=== PATIENT | male | born 1960 | race Caucasian/White ===

== ENCOUNTER 2022-10-20 07:26 | Outpatient (OUT) | payer BC, SELFPAY ==
--- NOTE | 2022-10-20 07:36 | XR_ITS ---
The [address] [address] Patient Name: HI WONG MRN: [id number] date: 1960 Sex: M Assigned Patient Location: RAD Current Patient Location: RAD Accession/Order Number: [id number] Exam Date: 10/20/2022 07:40 Report Date: 10/20/2022 08:08 At the request of: LINA FARRIS Procedure: XR chest 2V EXAMINATION: XR chest 2V HISTORY: Pneumonia Of Right Lower Lobe J18.9 , follow-up COMPARISON: XR chest 10/06/2022 FINDINGS: LUNGS: No significant pulmonary parenchymal abnormalities. VASCULATURE: No increased pulmonary vasculature. PLEURA: No pneumothorax, effusion, or pleural thickening. CARDIAC: No cardiomegaly or cardiac silhouette abnormality. MEDIASTINUM: No visible mass or adenopathy. BONES: No fracture or visible bone lesion. OTHER: Negative. IMPRESSION: 1. No acute cardiac point process. Clearing of previously seen infiltrates. Electronically authenticated by: ALANIS LAZAR Date: 10/20/2022 08:08
== END 2022-10-20 07:27 ==
LOC: RAD 07:30
PROVIDERS: PCP Family Medicine; Visit Provider Family Medicine
DX: J18.9 Pneumonia, unspecified organism (principal)
CPT/HCPCS: 71046

== ENCOUNTER 2023-02-11 07:09 | Outpatient (OUT) | payer BC, SELFPAY ==
[2023-02-11 08:34] LABS: Thyroid Stimulating Hormone 4.269 uIU/mL (0.358-3.740)
[2023-02-11 09:23] LABS: Free T4 0.94 ng/dL (0.76-1.46)
== END 2023-02-11 07:10 | disposition home or self-care (01) ==
LOC: LAB 07:13
PROVIDERS: PCP Family Medicine; Visit Provider Family Medicine
DX: E03.9 Hypothyroidism, unspecified (principal)
CPT/HCPCS: 36415; 84439; 84443

== ENCOUNTER 2023-07-29 07:54 | Outpatient (OUT) | payer BC, SELFPAY ==
[2023-07-29 09:26] LABS: TSH W/ REFLEX FT4 4.209 uIU/mL (0.358-3.740)
[2023-07-29 10:12] LABS: Free T4 0.86 ng/dL (0.76-1.46)
== END 2023-07-29 07:55 | disposition home or self-care (01) ==
LOC: LAB 07:57
PROVIDERS: PCP Family Medicine; Visit Provider Family Medicine
DX: E03.9 Hypothyroidism, unspecified (principal)
CPT/HCPCS: 36415; 84439; 84443

== ENCOUNTER 2023-10-28 09:45 | Outpatient (OUT) | payer BC, SELFPAY ==
--- OUTSIDE RECORDS SUMMARY | 2023-10-28 10:08 | XMS_ITS | CCD ---
Author Organization [facility] Care Team Providers Care Cloth Baler Name Role Phone Brenton, DO Lina Primary Care Provider Petznick, DO Lina Attending Provider [phone] Petznick, Lina Attending Unavailable Petznick, Lina Primary Care Unavailable Petznick, Lina Admitting Unavailable PETZNICK, LINA Primary Care Physician PETZNICK, LINA Admitting Unavailable PETZNICK, LINA Attending Unavailable PETZNICK, LINA Consulting Unavailable PETZNICK, LINA Primary Care Unavailable PETZNICK, LINA Attending Unavailable PETZNICK, LINA Consulting Unavailable PETZNICK, LINA Primary Care Unavailable PETZNICK, LINA Admitting Unavailable ANDRE ., DR GARCIA Attending Unavailable ANDRE ., DR GARCIA Consulting Unavailable ANDRE ., DR GARCIA Admitting Unavailable PETZNICK, LINA Primary Care Unavailable PAY ., DR POLO Attending Unavailable PAY ., DR POLO Consulting Unavailable PAY ., DR POLO Admitting Unavailable PETZNICK, LINA Primary Care Unavailable Chavez Cao Admitting Unavailable PETZNICK, LINA C Primary Care Unavailable Chavez Cao Attending Unavailable PETZNICK, LINA C Primary Care Unavailable CHYNA QUIROGA Attending Unavailable CHYNA QUIROGA Admitting Unavailable PETITTI, ELISA A Attending Unavailable PETZNICK, LINA C Referring Unavailable Nigel ANDRE Attending Unavailable Allergies Allergy Classification Reported Allergen(s) Allergy Type Date of Onset Reaction(s) Facility (4 sources) Penicillin; Translations: [penicillin] Drug Allergy Anaphylaxis (disorder) [facility] (1 source) Penicillins Drug allergy (disorder) 4 [facility] Repository Medications Current Medications Medication Drug Class(es) Dates Sig (Normalized) Sig (Original) Airborne Everyday (2 sources) Start: 06-28-2022 Airborne Everyday Daily, Refill(s) 0 Start Date: 06/28/22 Status: Ordered Fiber Tab (2 sources) Start: 06-28-2022 take 1 tablet by mouth four times daily Fiber Tabs mg, Oral, QID, Refills(s) 0 Start Date: 06/28/22 Status: Ordered Osteo Bi-Flex (2 sources) Start: 06-28-2022 Osteo Bi-Flex Refill(s) 0 Start Date: 06/28/22 Status: Ordered fluconazole 150 mg oral tablet (1 source) Azole Antifungal Start: 04-11-2023 take 1 tablet by mouth once daily Diflucan 150 mg Tab 150 mg = 1 tab(s), Oral, Daily, # 3 tab(s), Refills(s) 0, Pharmacy: [facility]/pharmacy #[id number], 168, cm, 06/28/22 13:27:00 EST, Height/Length Dosing, 112, kg, 06/28/22 13:27:00 EST, Weight Dosing Start Date: 04/11/23 Status: Ordered Advil (2 sources) Nonsteroidal Anti-inflammatory Drug Start: 06-28-2022 Advil Oral, q6hr, Refills(s) 0 Start Date: 06/28/22 Status: Ordered olmesartan medoxomil 20 mg oral tablet (2 sources) Angiotensin 2 Receptor Deborah Start: 06-28-2022 olmesartan 20 mg Tab Refills(s) 0 Start Date: 06/28/22 Status: Ordered Problems Active Problems Problem Classification Problem Date Documented Date Episodic/Chronic Disorders of lipid metabolism (2 sources) Hyperlipidemia 06-28-2022 Chronic Fever of unknown origin (4 sources) Fever, unspecified; Translations: [FEVER UNSPECIFIED] Onset: 09-24-2022 Episodic Heart valve disorders (1 source) Cardiac murmur, unspecified; Translations: [Cardiac murmur, unspecified] Onset: 05-31-2022 Episodic Other aftercare (1 source) Other terminal carman (current) drug therapy; Translations: [OTH RETIREMENT CURRENT DRUG THERAPY] Onset: 09-28-2022 Episodic Other lower respiratory disease (1 source) Other nonspecific abnormal finding of lung field; Translations: [OTH NONSPECIFIC ABN FIND LNG FIELD] Onset: 09-28-2022 Episodic Other nutritional; endocrine; and metabolic disorders (1 source) Obesity, unspecified; Translations: [OBESITY UNSPECIFIED] Onset: 09-28-2022 Chronic Other nutritional; endocrine; and metabolic disorders (1 source) Body mass index (BMI) 40.0-44.9, adult; Translations: [BODY MASS INDEX BMI 40.0-44.9 ADULT] Onset: 09-28-2022 Chronic Other screening for suspected conditions (not mental disorders or infectious disease) (7 sources) Raised prostate specific antigen; Translations: [Elevated prostate specific antigen [PSA]] Onset: 06-09-2022 Episodic Residual codes; unclassified (1 source) Family history of cancer; Translations: [Family history of malignant neoplasm of prostate] Onset: 06-28-2022 Episodic Residual codes; unclassified (2 sources) Family history of prostate cancer 06-28-2022 Episodic Thyroid disorders (4 sources) Hypothyroidism, unspecified; Translations: [HYPOTHYROIDISM UNSPECIFIED] Onset: 08-06-2022 Chronic Unclassified (1 source) CONTACT W/AND (SUSP) EXPOS COVID-19; Translations: [CONTACT W/AND (SUSP) EXPOS COVID-19] Onset: 09-28-2022 Past or Other Problems Problem Classification Problem Date Documented Da te Episodic/Chronic Other circulatory disease (1 source) Elevated blood-pressure reading, without diagnosis of hypertension; Translations: [ELEVATED BP READING W/O DX HTN] Onset: 06-03-2022 Episodic Results Test Name Value Interpretation Reference Range Facility Patient Letter FTon 2023 Patient Letter [facility] October 18, 2023 JOHANN WONG [address] [place] [id number] : 1960 Dear Mr. Johann Wong, [facility] has been trying to reach you concerning having a repeat PSA level done due to an elevated PSA. We certainly understand not having insurance, but the hospitals offer a shafer PSA quach which is affordable for most patients. This test can also be completed in our office, and sent to [employer] It is very important you comply with having this PSA level rechecked, as an elevated PSA can be an indicator of infection or possibly prostate cancer. Thank you for your cooperation in this matter. Sincerely, [facility] [place]anna [place] [place] [address] , option #3 Normal [facility] Coding Summaryon 12-16-2022 Coding Summary HTMLBase 64 XyadumcuENk9vUl+PGhl YWQ+RB7QKEBaF62fxFPy pQ6tL1JGSQsZJqjeWTTR QQhYNuXkdeXmAN9tcXKy ZXJu IC8+IB8lORSuCscsoSNf i1I4tLI8C46lkb3uVDzx rWW3WXBkIjAtzfvpg7hr mWk4ZGymGbkbPrTz NIPvaB34VVA6oL64Ao23 iBRytLQqm8ognYp8PpVy SQFcQVF7yDoqQKzrf0Up DDGjN25ddQVmr5Y5 IGNvbGxhcHNlOyBlbXB0 vA5lIQyldngnx1cwsazl Icq9za64mDNsq0N8oNV7 I7LmieY8IYYqzCMm PynljUZEmA2lgrfdf2bm blgkToEiEWOtMLa5YVb3 NBHzyGamPqMoVS05FWX3 AVVoclVxZ5RxFMFe xJjyYhG8r4R6Ah7MD1AG CqmpF9GTQGLWWBknbVF+ IM25gb07K6OqWqrwKfz3 OUOgLLS1uBQ5nR8b ZGOkKUkxj9A9pXB4H8Cm iaIfsn7mc2jnYVOrYUgh G75wgLWwz0Q7GAGjeTD8 DYBvnVtyDcDzzN25 Oyc+LIKszHnye1RnPvid k7hmq8dkoNh8HjmmMNQi ilWzuJzfJKA5u8FlWh7u WZCyoMQ0qRI3jX0j QkIcZiI0COktT752AfFs tGYiWgiaT89zI7BanVK+ AOEeNap9AVEneCviCS7j T1UuYLMbilwdkGKy tBjoGT3rLRZkqeykSUIa kQ4yBWGsO5p2OdOjVlN1 NBmpC0QcDHZekkrwJe81 nQ4bVqLgQfZ1KGjb H5YbcbA9UDXygGUjWVyh OEX7B50jk7E5EREoITOa XIO5cUO3cA5shHpuixgn bGVmdDsgdmVydGlj LNvlCNqmB599AMXxhJmr PkNvZGluZyBEYXRlOiAg MDgvMDMvMjAyMzwvdGQ+ DKHcSCR8hTgaLLYj hSEpTMyoLd6fqEgcpIpz CK5vCSQbwjtyOHYkwO4p GUJwaLUkyZoiTU2vHVYk ldzxd829HdQfFMP7 NUWieZYjF3SucH8aCyUi TZLzJXSsQ5FotDQgASlf F703BUcqGsY6AXTlhyKp U5GeFHMboZlfWlJ5 u1A0Yh9Ma0FxxjcyX2Kv bKGbIhCqNxnvNIx5E8Xc PjwvdHI+QX63HCHtGD36 LAz8HSW7qWolJVex LYJhX0BhxL0tHdGgKJVm ZGRkOyc+PHRhYmxlIHdp ZHRoPScxMDAlJyBzdHls MO8fKr3eMWZdEAWy nGuytPUgMnVlt4orDNXp IJviDB8uvMkkL4AsnTE1 UFIma1q0Az03S03kP1Ry dXA+JARerUW6iLO8 bL5sNqYfFxQ7TUwtV831 SqBgrYCwWvzut8xaq2st fMg5SqI8JKNlscShiWyt BKJ8x1VtQz28L70o IHdpZHRoPSIxNSUiIHZh aBxulg6czF9fBr2+PGNv sDA4eMW0bP2uAkXkIrF8 UTujS995NiWyfUBr Gqted9rgw6lzqUu9DsYk MDZxzyEpzHiyAOE5q7Eu Wa28P5OmoQomd6ZhVfx3 en45cYPdc1O4fQE1 C3IoOUSsnqdpxKIflLkd IE9fCAWoclyjBZVkoJ1n LYEmT3i0DyGqWpY8SDlo V3EppwM3IUFmhAAl DQErwETMpN5mmzrvp6hz ujaaAmSoOVAqEWg5ZCw0 EESevStuEdMxKBF9IaB5 NUS6xCTulP3ysJks viwfwF6dCos+VXE0cBOs hZKGEH2rUjspbUG+PHRk KYA8iWsmFNwlLRWpxS5a LCBxK0c4UvKeGvA8 DSkeN4JydsR6RQRbiBIm BNScsJNUhD8lsmalr4ys gajpSgJjCKWfFVs9NCb6 LWFsaWduOiBsZWZ0 XuJ1BHX4rOFvwW2pcYdn whmtuL4bTbd+QmlydGgg JIB4QVa1I8JhMpq5VJMv pRgqYY2exGVwAQzf Vh1ktNlbwBokPB0lWKGj cnazj884VmLju6vcQYSr zZTjXPvqUQG9O44vj4G6 ZEBtELZxSDS7xBP9 mZ7orOuuiaqzbZBtjCrr oqWdbZpiJEgmWJzqJ943 LVRimIjoRpUlNCy4T8Vx Cik7ZQXksUdjIZ7v zPOaFJujGn8lsXlqaGxc UD6kQXHdarawo371OrAx m1hbPSMleVEuKXzzIRU3 T59hx4X3HEOsRAHn QHN5kOH0wN9pnOthuitz bGVmdDsgdmVydGljYWwt TAyuH974GFUrqDqoEbYt qMh2Q3IpRdm0MLFn xWybRJ9hxNZqTOkgXn8a mAcuiTfeZU8bAWFyonbo f506KcZmx3ttWLHuuXAr SXtsZEI7H07uw9N1 HZYwPBVwHXX3lKN5zB1s bGlnbjogbGVmdDsgdmVy rMsyDVtyTTddQ543CSGn cDsnPlBhdGllbnQg HReuYYq3K1NkTinkaLJ+ EM23YTDeEO13yCWnwYTb m1vguOp1VxPiOJSlOOC3 qWimVAidb7ZeYYAg N66abMRjd8O3MADvfWlm gDNuChEwsFE1bL1gZCdn pbvie2loggmcZednq9nl nt39cG93O14vUNwi ZHRoPSIzMCUiIHZhbGln el3jtF8gPv6+PGNvbCB3 uLF9dV6gGTKnBcJ9IGrq J745YuJhnFCdPqbl w6jqo9ixmNw6WyY0QYSt dqWexPsbTDS1c0UkQn75 U72fNExkINWsOYQfKQDw DSOqhAisyy6lnM9t Ii8+KAKhuKD7uBD2dE4k HxKeXrG0DYhdL103RiKs iTAwFrhaE46uP9HqnEH+ AOViXku7VSYbjMtl AD7djXUlJSvpZu2eLFK6 OiKgCxZeQHgcW7LbXOKs kvniypszkFU3YGWiHRIm oC54Gg0ieUdvWEMf iMLKgS2yojfzw1alwkio LtGfYCMiLXn6AZt6PXKn hHhsLxPdBTP6QvN0ZWB0 zQMyfV9etZxkzxuz eW1cI7BsBSKhkxnbUx14 kV3sVdGhPlC9WVgfTqd+ VkFORFlLRSwgREFOSUVM TPgGG2URXIiivOE+ CNZmBYD5rOliFLvePHVp mO3dVBZfP3p0OvYxFeC5 JMlcG4KeYUBupunqOd04 bC1pEnYsLkV7YFxf W2XlowT2MFRklVOxTXdw OXC9K61tk7N7WNTvBINk YGE1gVJ7dJ0zjWpfgjvm bGVmdDsgdmVydGlj NSeuILltR804ROAoqOaz JxFbHfOsBhX4YnI8D8Ms Rxq1XEHzgQnjSX2abPVu UCdmId3alEvfbSys SU1eSUJyzpltYRIezZ6d QHTnmZQxmZxrSA4pZNXq mzdnj547YnDzNSE9PBWf oIObZ3AhnA1iXlHk PLFfWVUhJ4WuuAMqHBvg Y889XRypFhC9XFCwcyDl B0PkUVKzuDlxNaR5h3L3 Vl99IGNZEGSrlgjz dGQ+ERHeGUZ5qDvlJIgv TJVvyL4aCTSlB1s4TjQl MzV7QIwhP7ClXEIueyku Nd37yA5wAnZeTyP0 MDqbP3MnsoD3AYHboFJz PEmlCNE8F58db0P9WDIz EYXpCZL1mVQ5kV7neAdu bjogbGVmdDsgdmVy pDvkNFnoIYgcH607GSVg vFpeBf3ORBV8T8AeBav6 EIUziSqrFV7vgLBdCJpc Et7hbZfhoZdjBJ2i HUJhswgjLEAisD1oOPVw iBCbvMorAC0wMUQiimwz c754LyTnZUQ0XORrrLLm Y7PnyM6qOgKjOEVu USRuV7GfkMSqJQbgL130 LBoyQhX5KERlejLmN2Mi FLQlpDljKyE7c7L2Dl9Y UDwvdGQ+ZM38uq37 D9IiNgacJmn4MHMsUXY5 cPK1jX9sITDfPWnwy0U3 hPQ7T8BjnyEblk7sb0nc IJWdYJizY33kqGGv t6N7HHXduMW1YPJxqCog ZcFopO09Eih+PGNvbGdy p2VfEwcbz3pky1qjxNs8 IjMwJSIgdmFsaWdu QWI9x5GwOc93V18zGAxs ZHRoPSIzMCUiIHZhbGln wg2yaL5jOf5+PGNvbCB3 zDV7eP7pRiVwJiL0 IPbyE562UiCllOQjCgvv v7ats6odeSu0HbJyZSLp lzItrVnpUVF4m3SjHx34 W2AumAzmz3RqUlh6 pe70dXOsu4N0dBD2D0Pw ASTvxgpleECwnTheDD6m OYAmxlddARVikQ7nBLLh J3a9BvYtCwV9NHow I2RdezN7YHFzcHZmCIUf fGUWvF2fepdwq2phzxbv HuPjUPSmSLp7IWv3TAKj uDlwZqWdQNN2UfM5 AFS5bSUdcN8gvZmzikyi bL9xRpj+ZOr5f1axvRJb BN9ojSW5AK05PH27tXSt w7M3cOK8E4JdBKTh vtimwpwsfWS0CMOqVCNv bN46Ph5roImjKs8kRKUo FES1JAMhwWAqH4KiaM9p NwRfUZFpPLByO8Ck xQKfQOowJ615RTyzXeT1 JQIsyoPbZ2VfBUTgjJys GzS3f5U2Fj4SWE36CH77 KI67nDFtk0D5qXB5 S8KnHTSqshjufgjyhPG3 NVLbBGFbwT35Wa0mmHdz Iq4kUSWjWRY5ITVdbYYk Q1GspV3vUzYtRWKs YTEjH4PqtBVjZNhuA449 DZiwWdU5VOIhdaTgB7Cc OQPtlUskSxG5w3W7Xj0X Fh16VO55LE09lANx m1I9pDJ7X7JnISFlutdf ejoptUL1CXJjMPWdcW30 Mg6bkZoqJj6jVYOaSFF7 YQGkrLAnV5EodR0d TgHuYLCbKFAvF2DrbHIl PNkeM698XCzsLnM2PZAz zoLhS4UcSTVtnDjoTuA2 j2C0Xj6HFVjuybq9 W8TbPetufVY+RE24VZRg CB38nKIeyCCor7mftWg5 ZgOuKDMoEDS5vPgmDDye s8WmNDReZ03stTSt c2U (more content not included)... [facility] ED Clinical Summaryon 2022 ED Clinical Summary [facility] ? Urgent Care [address] [place] [id number] Clinical Summary PERSON INFORMATION Name: JOHANN WONG Age: 62 Years Sex: MALE : 1960 MRN: Acct#: Visit Reason: Cough; COUGH Arrival: 12/09/2022 10:21:22 Discharge: 12/09/2022 11:00:00 LOS: 000 00:39 Check In: 12/09/2022 10:21:22 Checkout: 12/09/2022 11:00:00 Address: [address] [place] [id number] PCP: LINA FARRIS PROVIDER INFORMATION Provider Role Assigned Unassigned Chavez Cao-Brijesh ED PA 12/09/2022 10:24:23 Kenia Gaffney PATTERN CHANGER Nurse 12/09/2022 10:41:24 VITALS INFORMATION Vital Sign Triage Latest Temperature Tympanic Temperature Temporal Artery Pulse Rate O2 Sat 93 % 93 % Respiratory Rate Blood Pressure /70 mmHg /70 mmHg MEDICAL INFORMATION Medications Given: Allergy Information: penicillin PHYSICIAN DOCUMENTATION DISCHARGE INFORMATION: Discharge Disposition: Home Discharge Location: Home PATIENT EDUCATION INFORMATION Instructions: Acute Bronchitis, Adult, Zbnb-pi-Nqnh Follow-Up: With: Address: When: LINA FARRIS [address] [place], [place] [id number] Business (1) Within 5 to 7 days DIAGNOSIS: Bronchitis Patient Understands: Yes - Patient/family/careg iver verbalizes understanding of instructions given Comment: [facility] ED Patient Summaryon 023 ED Patient Summary [facility] ? Urgent Care [address] [place] [address] PATIENT DISCHARGE INSTRUCTIONS Patient Information Name: JOHANN WONG Age: 62 Years Date of : 1960 Reason For Visit: Cough; COUGH Arrival Time: 12/09/2022 10:21:22 Primary Care Physician: LINA FARRIS Attending Physician: Chavez Cao PA-C Comment: Patient Education With: Address: When: LINA BRENTON [address] [place], [place] [id number] Disruptor Beam (1) Within 5 to 7 days Acute Bronchitis, Adult Acute bronchitis is when air tubes in the lungs (bronchi) suddenly get swollen. The condition can make it hard for you to breathe. In adults, acute bronchitis usually goes away within 2 weeks. A cough caused by bronchitis may last up to 3 weeks. Smoking, allergies, and asthma can make the condition worse. What are the causes? ? Germs that cause cold and flu (viruses). The most common cause of this condition is the virus that causes the common cold. ? Bacteria. ? Substances that bother (irritate) the lungs, including: ? Smoke from cigarettes and other types of tobacco. ? Dust and pollen. ? Fumes from chemicals, gases, or burned fuel. ? Indoor or outdoor air pollution. What increases the risk? ? A weak body's defense system. This is also called the immune system. ? Any condition that affects your lungs and breathing, such as asthma. What are the signs or symptoms? ? A cough. ? Coughing up clear, yellow, or green mucus. ? Making high-pitched whistling sounds when you breathe, most often when you breathe out (wheezing). ? Runny or stuffy nose. ? Having too much mucus in your lungs (chest congestion). ? Shortness of breath. ? Body aches. ? A sore throat. How is this treated? Acute bronchitis may go away over time without treatment. Your doctor may tell you to: ? Drink more fluids. This will help thin your mucus so it is easier to cough up. ? Use a device that gets medicine into your lungs (inhaler). ? Use a vaporizer or a humidifier. These are machines that add water to the air. This helps with coughing and poor breathing. ? Take a medicine that thins mucus and helps clear it from your lungs. ? Take a medicine that prevents or stops coughing. It is not common to take an antibiotic medicine for this condition. Follow these instructions at home: ? Take iqon-itz-najjdmg and prescription medicines only as told by your doctor. ? Use an inhaler, vaporizer, or humidifier as told by your doctor. ? Take two teaspoons (10 mL) of honey at bedtime. This helps lessen your coughing at night. ? Drink enough fluid to keep your pee (urine) pale yellow. ? Do not smoke or use any products that contain nicotine or tobacco. If you need help quitting, ask your doctor. ? Get a lot of rest. ? Return to your normal activities when your doctor says that it is safe. ? Keep all follow-up visits. How is this prevented? ? Wash your hands often with soap and water for at least 20 seconds. If you cannot use soap and water, use hand manager shipping. ? Avoid contact with people who have cold symptoms. ? Try not to touch your mouth, nose, or eyes with your hands. ? Avoid breathing in smoke or chemical fumes. ? Make sure to get the flu shot every year. Contact a doctor if: ? Your symptoms do not get better in 2 weeks. ? You have trouble coughing up the mucus. ? Your cough keeps you awake at night. ? You have a fever. Get help right away if: ? You cough up blood. ? You have chest pain. ? You have very bad shortness of breath. ? You faint or keep feeling like you are going to faint. ? You have a very bad headache. ? Your fever or chills get worse. These symptoms may be an emergency. Get help right away. Call your local emergency services (911 in the [place] ? Do not wait to see if the symptoms will go away. ? Do not drive yourself to the hospital. Summary ? Acute bronchitis is when air tubes in the lungs (bronchi) suddenly get swollen. In adults, acute bronchitis usually goes away within 2 weeks. ? Drink more fluids. This will help thin your mucus so it is easier to cough up. ? Take ribs-jem-pgpsktd and prescription medicines only as told by your doctor. ? Contact a doctor if your symptoms do not improve after 2 weeks of treatment. This information is not intended to replace advice given to you by your health care provider. Make sure you discuss any questions you have with your health care provider. Document Revised: 09/02/2021 Document Reviewed: 09/02/2021 [employer] Patient Education ? 2022 [employer]. Medication Information: The exam and treatment you received today in the [facility] were for an urgent problem and are not intended as complete care. It is important for you to follow up with a d (more content not included)... Normal [facility] Urgent Care Note- Provideron 12-09-2022 Urgent Care Note- Provider Patient: JOHANN WONG Age: 62 years Sex: MALE : 1960 Associated Diagnoses: Bronchitis Author: Chavez Cao PA-C Basic Information Additional information: Chief Complaint from Nursing Triage Note : Chief Complaint 12/09/2022 10:32 EDT Chief Complaint here for cough since diagnosis of pneumonia in September. states cough has never gone away and feels worse now. no obvious distress . History of Present Illness This is a 62 year old here today with concerns of worsening cough over the past 7 days. He was treated with pneumonia in September. He felt better after antibiotics, but has continued with a dry, hacking cough. Now over the past 7 days he is feeling some malaise again, with worsening cough. Cough is deep in his chest now, still non productive. He has some intermittent wheeze. No fevers, chills. Mild malaise. No headache, neck pain or stiffness. No ear pain, some nasal congestion, no real sore throat. No chest pains. Mild SOB. There is a dry, deep, hacking cough. No skin rashes or lesions. There are no other associated symptoms. Nothing makes the symptoms better or worse. Symptoms are described as gradual onset, moderate in nature and persisting. He denies any COPD or emphysema. He did grow up in a household of smokers. He has been prescribed in an inhaler in the past when he's sick. Health Status Allergies: Allergic Reactions (Selected) Severity Not Documented Penicillin- No reactions were documented.. Medications: (Selected) Documented Medications Documented Osteo Bi-Flex Advanced oral tablet: 2 tab(s), PO, Daily, 0 Refill(s) olmesartan 20 mg oral tablet: 20 mg = 1 tab(s), PO, Daily, TAKE 1 TABLET BY MOUTH EVERY DAY FOR 90 DAYS. Past Medical/ Family/ Social History Medical history: No active or resolved past medical history items have been selected or recorded.. Surgical history: No active procedure history items have been selected or recorded.. Family history: No family history items have been selected or recorded.. Social history: Social & Psychosocial Habits Alcohol 12/09/2022 Alcohol Use: Current Frequency: 1-2 times per week Substance Abuse 12/09/2022 Substance use: Never Tobacco 12/09/2022 Smoking tobacco use: Never tobacco user Electronic Cigarette/Vaping 12/09/2022 Electronic Cigarette Use: Never . Problem list: No qualifying data available . Physical Examination Vital Signs Vital Signs 12/09/2022 10:32 EDT Temperature Tympanic 36.9 DegC Peripheral Pulse Rate 68 bpm Respiratory Rate 16 br/min Systolic Blood Pressure 120 mmHg Diastolic Blood Pressure 70 mmHg SpO2 93 % Oxygen Therapy Room air BP Method Manual . Measurements 12/09/2022 10:32 EDT Height 167.64 cm Weight 117.84 kg Body Mass Index Measured 41.93 kg/m2 BSA Measured 2.34 m2 . GENERAL: Awake, alert and oriented to person, place and situation. Well nourished, well developed, non toxic, NAD. EYES: Pupils equal, round and react to light. EOMI. ENMT: Ears: TM's and external canals with normal inspection bilaterally. Nose: clear rhinorrhea, purple turbinates. Mouth: oral mucosa is pink and still moist. Throat: erythematous with PND, no lymphadenopathy or exudate. NECK: Normal range of motion, no meningismus, trachea is midline. No anterior or posterior lymphadenopathy. CARDIOVASCULAR: Regular rate and rhythm. +S1 +S2. No murmurs or rubs. RESPIRATORY: Slightly diminished breath sounds in bilateral bases, but clear to auscultation bilaterally without rales, rhonchi or wheeze. Reactive, dry cough. EXTREMITIES: No cyanosis, clubbing or edema. No calf tenderness to palpation or passive stretch. Good muscle tone, moves all extremities. SKIN: Normal inspection, no visualized rash. Medical Decision Making 7+ days of worsening cough and congestion. Rx Z-pack. Prednisone and Ventolin as directed for reactive cough. Tessalon Perles as needed for cough. May also add Claritin or Zyrtec in case some of the coughing is allergic in nature. 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 It is slightly low here. Return with new, or worsening symptoms, or symptoms failing to improve as expected and the patient voiced their understanding. Report to the ER with lowering pulse ox or pulse ox not improving. Questions answered. Follow-up with their family doctor as directed, return here sooner as needed. Impression and Plan Diagnosis Bronchitis ([id number] J40, Discharge, Medical) Plan Condition: Stable. Disposition: Discharged: Time 12/09/2022 10:44:00, to home. Prescriptions: [facility] prescriptions Pharmacy: benzonatate 200 mg oral capsule (Prescribe): 200 mg = 1 cap(s), PO, TID, for 7 day(s), PRN: as needed for cough, 21 cap(s), 0 Refill(s) predniSONE 20 mg oral tablet (Prescribe): 40 mg = 2 tab(s), PO, Daily, for 5 day(s), 10 tab(s), 0 Refill(s) Zithromax Z-Jose Juan 250 mg oral tablet (Prescribe): 1 packet(s), PO, Once, as directed on package labeling, 6 tab(s), 0 Refill(s) Ventolin HFA 90 mcg/inh (more content not included)... Normal [facility] [place] 023 Urgent Care Record [facility] ? Urgent Care [address] [place], [place] [id number] PATIENT DISCHARGE INSTRUCTIONS Patient Information Name: JOHANN WONG Age: 62 Years Date of : 1960 Reason For Visit: Cough; COUGH Arrival Time: 12/09/2022 10:21:22 Primary Care Physician: LINA FARRIS Attending Physician: Chavez Cao PA-C Comment: Visit Diagnosis: Diagnoses This Visit Bronchitis (J40) Cough ([id number]) If you received any narcotics, sedation, or any other medication that causes drowsiness for the next 24 hours, unless otherwise directed: ? Do not drive a car. ? Do not operate machinery such as power tools, lawn mowers, drills, sewing machines, or stoves ? Avoid alcoholic beverages and drugs for allergies, nerves, or sleep ? Do not make important personal or business decisions or sign any legal documents With: Address: When: LINA FARRIS [address] [place], [place] [id number] Business (1) Within 5 to 7 days Medication Information: The exam and treatment you received today in the [facility] were for an urgent problem and are not intended as complete care. It is important for you to follow up with a doctor, nurse practitioner, or physician?s entry level administrative assistant for ongoing care. If your symptoms become worse or you do not improve as expected and you are unable to reach your usual health care provider, you should return to the Emergency Department, we are available 24 hours a day. For those patients who have received Radiology results, the interpretation of your X-ray as given to you by our Urgent Care physician is only a preliminary report. The Radiologist will review your films and if there is a change in the diagnosis you will be notified by phone. Please make sure you have provided a working phone number so we can reach you if necessary. In the event that you had a lab culture while you were a patient in the Urgent Care, you will be notified by phone if there is a need to change your antibiotic. Please make sure you have provided a working phone number so we can reach you if necessary. [facility] has provided you with a complete list of medications post discharge. Please inform your case consultant/provider of your visit and for further instruction on these medications. Any specific questions regarding your chronic medications and dosages should be discussed with your primary care physician(s) and/or pharmacist. New Medications [facility]/pharm[facility] #[id number], [address], [place] [id number], [phone] albuterol (Ventolin HFA 90 mcg/inh inhalation aerosol) 2 puff(s) Inhalation Every 4 hours as needed for wheezing for 7 Days. Refills: 0. azithromycin (Zithromax Z-Jose Juan 250 mg oral tablet) 1 packet(s) Oral once. as directed on package labeling. Refills: 0. benzonatate (benzonatate 200 mg oral capsule) 1 cap(s) Oral 3 times a day as needed as needed for cough for 7 Days. Refills: 0. predniSONE (predniSONE 20 mg oral tablet) 2 tab(s) Oral every day for 5 Days. Refills: 0. Additional medications on your home medication list not specifically addressed. Please contact the ordering physician if you have questions about these medications. chondroitin/glucosam ine/methylsulfonylme zonia (Osteo Bi-Flex Advanced oral tablet) 2 tab(s) Oral every day. olmesartan (olmesartan 20 mg oral tablet) 1 tab(s) Oral every day. TAKE 1 TABLET BY MOUTH EVERY DAY FOR 90 DAYS. Visit Information Allergies: Substance Reaction Symptoms Type Comments penicillin Drug Vital Signs: Vitals and Measurements this Visit (last charted value for your 12/09/2022 visit) Vital Signs This Visit Temperature Tympanic: 36.9 DegC Peripheral Pulse Rate: 68 bpm Respiratory Rate: 16 br/min Systolic Blood Pressure: 120 mmHg Diastolic Blood Pressure: 70 mmHg SpO2: 93 % Oxygen Therapy: Room air Blood Pressure Method: Manual Measurements This Visit Height/Length Measured: 167.64 cm Weight Measured: 117.84 kg Body Mass Index: 41.93 kg/m2 BSA Measured: 2.34 m2 Problems List: Problem Onset Comments No Problems found Patient Education Acute Bronchitis, Adult Acute bronchitis is when air tubes in the lungs (bronchi) suddenly get swollen. The condition can make it hard for you to breathe. In adults, acute bronchitis usually goes away within 2 weeks. A cough caused by bronchitis may last up to 3 weeks. Smoking, allergies, and asthma can make the condition worse. What are the causes? ? Germs that cause cold and flu (viruses). The most common cause of this condition is the virus that causes the common cold. ? Bacteria. ? Substances that bother (irritate) the lungs, including: ? Smoke from cigarettes and other types of tobacco. ? Dust and pollen. ? Fumes from chemicals, gases, or burned fuel. ? Indoor or outdoor air pollution. What increases the risk? ? A weak body's defense system. This (more content not included)... Normal [facility] Coding Summaryon 09-30-2022 Coding Summary HTMLBase 64 HyfbfjbbFOm4jYz+PGhl YWQ+YJ4OOHLrJ90pgWMb eT2SZ2nANA9AHVYZWTBR AO4QLS2bjIX3ZJmsI4Jv biAv HsdrcUJuIB43PQc3RKU3 cWjkUNhelA7ndYPeI2c8 IhPvKS02pL48UOmiMDXj EmR4ZpRoaqdvjYTm P6cvTbDktYDyGmk+PHRh YmxlIHdpZHRoPScxMDAl BpBbnUcmOK8jPw1hYPRb LWNvbGxhcHNlOiBj d4vaAYBcNSbpXZ8tkWfs B0RpkEO5GCDed9l2Pa21 dHI+DEClQRC1gRkxWMmu l808UkDcl1cyMVR4 eWEnUNhwAGR5G30eb4I7 QFJbNICqWAH7uXF0gQ0t kFuhjrybT6BstXXkMwO3 HQD4dWWmyA5erRfn tfvrbW5vTrj+H69WIU4C OKXIBQ6KFmi7P3AePtkv dHI+QK34DWLnJU46dCKo hWBcj0tuwWg4AsLv JLPnHYH8gFrbMSkvx9Mf TJPmO40ipGOdw8U2YYJt dKhtkEMbIfRopUV2mC1n PSgikenas4zerzqu Znixv9wzyx46hZ50P38g FGsbFVGfPVC5DNYdZYHn sVsisz1dmF5fCq4+IDxj c5gjt7uraCx8ZaRs GPDltgPysEqgQPK4o7Po Xh93P3OwsZhtc3YiGkv9 to98oUUkm3K2pTR7XHsl FCKcaO6xMWxyUtM8 KGWgKcBesQ26hIYpDJbv Ih6qsJisoDakYY5nAMAi xpaxWAHsxB2bDPVdlJPp xVjwEI1iTEVanqcp g999BjImAWM3ISZpiAJe S0OvyG6wPfDjRFDnGSLl T2OzaQAwWMonQ753YGyx PlF8GIObyoWsU6Cx CTCdxFomJmU3w6O6Wy2Q q0EfsyltOVV9HYtxHRT1 HlT1GlBoTzL3Z0PrQea0 BILlaPevYI8zJ9Wt GFAvldhwqfyzcBR9BGRq FAPqsQ03eUAjOAwmSb8a v3F1z061XJTrAEGtfO92 Mf4dgUmzIKYdaYAP bE2dpqggf9otlpjqBpTy NVSgYFu8XDr3DZRsiOmj FxRqZIA4HzT5AYF6dPCc yR4lfKovpbolrC0t Oyc+O11lcH2iNDN3LZC5 kjbzTWAgbuYzPB86NB12 J9BqEmpnpDIqaAW+PGRp ghLexXkwHX4sYbHw z3mhj3UdBZqeP1NbQDFr OWeqAss0XTEnQFD8nGZ5 rK9dZBOhUXydi1U4uWD9 M0XlqiQxfh4xe4xc QSTwFMeoL70ybRRgt6J2 OUAoxKL9YQNpoNzaElQe eL21Hug+CMUqqVygk8Yu Yavjv3oag8dbxLr2 IjMwJSIgdmFsaWduPSJ0 r0LkJs30T88dVZrkXOSk JBUnLCOaFMXvcWbydf6q yD6vLp2+PGNvbCB3 kSA8bO0tSKNuFcC0JJdg C141LuTtqCZnRicca1nw o0spaEz4OfHzQPAwlhLz eBjcNDU5d7NzKy19 D84cKLphCDXcVSHsWUIg GYRnjYlezs8ltS3jCg1+ RE7wm0elzf55cZ80nGI+ XVSePTB7cSrzXLqj XKFalV0iSFgyHlC3JELg LmAmdV12lDUrQXseNn8y bPuhfYliVA1tGWQoctqm e336IqQae5icBDQf nSLqHXrwPPL6H56zm5V5 YGPkLCQrHTW2tJX8nN3n bGlnbjogbGVmdDsgdmVy mFrqMGidQAqqJ100 IHRvcDsnPlBhdGllbnQg CsXqSOj7X8BaMqv9NBXi wTxmIA9vgUYqPVlnMp5c gKqrcWppID3tLVOb tuokw202VxJvu7axMYRu yCSpKEenLZS7Z40gy6F5 QZOjOSJfUNX8vAX1pC6s bGlnbjogbGVmdDsg wvNelTtrESqqXHssB225 IHRvcDsnPkJpcnRoIERh cQU4ET49BJ15lVYup6M2 wCQ9N4DcBYTuaiel nrzqlXT7QSPlDBUsvX19 Ep5qlFtlLy9mKSZaEIG4 XYPixZUdV2KqjF6oDmWq TKNaGJDaP7MtiDHu IDldB587YTpvRxY0SALk udDgV0NdXSWeiFwkPcL4 w7Q1Gv1JK3D6QS81FJ11 cDWkf6U5fMB2Z5Jb EATicpxmtheupRA7PFXi PIWoqZ81Eg1enGspWb6r GOWnTCE0JALzoQZtC7Rf zS4jDkTjMUXjRURl P4WyhNQzQBdsZ601AXfd JcA5LGYcpwWjO2WsXKNr nRmxFbW8f3Z7Qi2JTUz7 SI14MU59cSEdd8W2 dRE8V7LoAPJxfvjqfmoz dKD5GYXiNWMtsW80Ns7j jVhwJi6dMPSmYQF5GDAn xPOpR8BxdE5kGtIk BGBkTIKjQ5LyaYUqGJzy N638TZdoReA6YYVkthIt F8HeVCRuoDlqNuD1t2A1 Ct9PMBLuQT97QCJ7 vLW4WP39CK13Z8CdKmrn dGFibGU+PHRhYmxlIHdp ZHRoPScxMDAlJyBzdHls DU0xCj0lCGUkLSOh lEzzeTPfXdJvj6iqPXMj DUedUG8bsWujI8RosSO2 HGRhn8f1Td46E48dM9Tc dXA+LJWmgHR8hWR8 eK9nPeYsUeW5MIkoP293 ShWknIBdQylrv3tgd5qs aXx9KlO0RXYmntBlkLqp BTZ4u5BoEf40W38q IHdpZHRoPSIxNSUiIHZh tWmjjt1ddU8yJo2+PGNv lIM4gGG9bK5fMqXsAyA9 TYegH685PcQztIEy Mrihg2rvr3xhaIk4OzVd VYZjgxRzaBswLNE6t1Fr Mi25K2UecWfgx7CoZpi2 tf17uIHwf3O6cXS3 V9DiXCNtvdngoXNjyNgn ES4dANZtoaqeBIUedD0b NRVeF8p5OaJfWhO2NDpe D4PqenH3RSPrdWLk WBabPKG3J86yr7Y2ABDc JFMpVTZ8cYQ1xY5suVnv bjogbGVmdDsgdmVydGlj SOuoEUlwT920EQXe kDcmSSKsrP8pUGJtlBRd jEqhUD4kKETmciahLsQD QdHTL8IfWJWIOnqUAMZZ F2LQSVz6Q0RwDde5 OLKcbFyyFP4zkWPzVEcp Nq9cjXhgkRgfSF1sXMFv nthzGRNglL7bHDTovOZk xPbqMQ9sWUEmuxgs m273ZrBvNBK9NEFpdIOz K3KeuA9tVgPeDOQlEWEk Y2NecVUoBOcvU150QUhg BoD0LCAgbnSkL7Rk ETYemUraDoW6j2E9Lo4h Rm4kXj1jXVHqFW99GQ25 jJVyi9Y2gFK6S2DjLUDk urvvbahzjJV6DKJm COWxyC42zCDuXYxuFx9t p5S5m301WRPoQGKuuK33 Aa1xsGssLTRymXJTdT9v yjxqa1hwctniLdKs MPUrPRg9CTz8DZYvpHgk NaVaNRS3XdE4CUY0kUZk uG6piHjcscjuuR3oTfk+ VfViZWLbxwX1H5Dv Hcn0MECggKgkEV3tqEYo INjgWf5feLluvBbpES5f MEKzqejoUNXqdO7sMPOc cQLrmNynQL9eSIUc bouhe542YhEfQZZ0FHIm nJMxO1YbcP6wJmSnYEIq IUEoX3PleJYyCMhzQ029 OZybHqF9YYKaadDa P6SfHDCkqMdeUvY2o8A9 Qe3EAIxRPX63XW24zKQc h3S7gNO9W5UbBSLfcwog xjtgtLZ9YSUkZKEf aI08xDFiOTsbGy7vl4Q2 e511IWYpGBKhoN83Nr8p eCfaAGXnvYDVyT8qelof u9pyqfhrScFeINEq ZSm6VSa3XGXgaTybDfIj SJM9NlH5SGU4xPZcfM1h ySpfuwwzwR1sTdr+T1A8 X5DaRqitlEC+PC90 IMSpTI85fDTvuMTsd8vu wAo2XrZaFXMxQUO6wSfv FCcan7MkSDXyA99neBEm r2U2NVUxyRdhcRRr RnNrgZO3iJ8kEAwvkjkp f5nrvkdpCqivu1rbpo86 zD35F45rBNilPISfLDOf BBVwRXNsvPumuy2r fU2eBn3+YQInwLS7nRN5 nW5dUrQgThQ1CLpvO737 EkJxkNWxMxuvj9zlk7rw wTs7HpZyXJDpswLr bRkoGYB8d1YwBd99M59f IHdpZHRoPSIyMCUiIHZh lJyhww0zcY2ePr1+PC9j a1asvi54jP78rHU+ SDByIDD2dLyuYMzrCYBo pY8fLQdcVbV0AEYtGoCa aD89cBPvYOmvBu5tkSxy yVxvKZ7uJYRsczfo f570CeWis3naOSBssCXi DSzjGWM6A37jq4A5HGSx KUOiUGZ7lBR6zW9tuKhu bjogbGVmdDsgdmVy vPjlHHocBGnuK219EVGs aKefKnJtyOVdJ4gebbPU UJ6pFurwkWX+PHRkIHN0 rUwpMKfcYUMpqK3p FEDaI5v8IrBrVrZ2UUmn P4QnrhR8CRWdkBThVWUc rJUHkF2ftflwh8gvvwqh EvHwLXCqQDh6OZk3 JYTobKiaQkKvXVY5HpG4 DRU7pRXavD4yeUgyzoca bT0iAsg+RklOOjwvdGQ+ LIMsFLH6xUahYWeq FGCayG9kCULnB9e8DySv QdH0FGgsN1RowpV9SCJe jEYvAQVtxIKPpY4lidsy m9jxbfdnHpFeWKZr GUe9ZVl5OYVjpBwnZwEj ZGL6AfU4LIV3zXBjiJ9s nTkqtcopsB7iNfk+TVJO OjwvdGQ+PHRkIHN0 uKukPFgxLUWgpM6mYFKb L2o1MfUhDsG7EXdeP3Re zhB6LXUolZAoVRNdaKGC xQ3lxtqhx2vzkrqe MyIoVPIjDPm0MLx4OXFb dSoqAlJiFOY2ZhB4ZTZ6 zOJcsH7tyMemmksnjA6b Oyc+LDN5QBV1BW56 ZM75O6DcFstkoWWkkSR+ PHRhYmxlIHdpZHRoPScx KKLrXjQljJcpUB0xOy6q ZGVyLWNvbGxhcHNl OiB (more content not included)... Normal [facility] C Throaton 09-25-2022 C Throat Ordered by Discern. Normal throat dereje isolated No pathogens isolated Normal [facility] Comment on above: Performed By: #### [id number] ####[facility] (DEFAULT)[address] [place] [address] BNPon 09-24-2022 Natriuretic peptide B (Bld) [Mass/Vol] 243.0 pg/mL Normal <=900.0 [facility] Comment on above: Performed By: #### T SH, CMP, LIPID #### [facility] [address] [place] [address] Dr. Isiah Donohue CBC AUTO DIFFon 09-24-2022 BASO # 0.0 103/ul Normal 0.0-0.1 [facility] Comment on above: Performed By: #### T SH, CMP, LIPID #### [facility] [address] [place] [address] Dr. Isiah Donohue Basophils/100 WBC (Bld) 0.3 % Normal 0.2-2.0 [facility] Comment on above: Performed By: #### T SH, CMP, LIPID #### [facility] [address] [place] [address] Dr. Isiah Donohue EO # 0.0 103/ul Normal 0.0-0.7 [facility] Comment on above: Performed By: #### T SH, CMP, LIPID #### [facility] [address] [place] [address] Dr. Isiah Donohue Eosinophils/100 WBC (Bld) 0.5 % Critically low 0.9-7.0 [facility] Comment on above: Performed By: #### T SH, CMP, LIPID #### [facility] [address] [place], [place] [id number] Dr. Isiah Donohue Erythrocyte distribution width (RBC) [Ratio] 13.0 % Normal 11.0-15.0 [facility] Comment on above: Performed By: #### T SH, CMP, LIPID #### [facility] [address] [place] [address] Dr. Isiah Donohue Hematocrit (Bld) [Volume fraction] 40.4 % Critically low 42.0-54.0 [facility] Comment on above: Performed By: #### T SH, CMP, LIPID #### [facility] [address] [place] [address] Dr. Isiah Donohue Hemoglobin (Bld) [Mass/Vol] 13.2 g/dL Critically low 14.0-18.0 [facility] Comment on above: Performed By: #### T SH, CMP, LIPID #### [facility] [address] [place] [address] Dr. Isiah Donohue IG # 0.02 10e3/ul Normal 0.00-0.03 [facility] Comment on above: Performed By: #### T SH, CMP, LIPID #### [facility] [address] [place] [address] Dr. Isiah Donohue IG % 0.3 % Normal 0.0-0.5 [facility] Comment on above: Performed By: #### T SH, CMP, LIPID #### [facility] [address] [place] [address] Dr. Isiah Donohue LYMPH # 0.6 103/ul Critically low 1.2-3.8 [facility] Comment on above: Performed By: #### T SH, CMP, LIPID #### [facility] [address] [place] [address] Dr. Isiah Donohue Lymphocytes/100 WBC (Bld) 10.2 % Critically low 20.5-60.0 [facility] Comment on above: Performed By: #### T SH, CMP, LIPID #### [facility] [address] [place] [address] Dr. Isiah Donohue MANUAL DIFF REQ NO Normal [facility] Comment on above: Performed By: #### T SH, CMP, LIPID #### [facility] [address] [place] [address] Dr. Isiah Donohue MCH (RBC) [Entitic mass] 29.1 pg Normal 25.9-34.0 [facility] Comment on above: Performed By: #### T SH, CMP, LIPID #### [facility] [address] [place] [address] Dr. Isiah Donohue MCHC (RBC) [Mass/Vol] 32.7 g/dL Normal 29.9-35.2 [facility] Comment on above: Performed By: #### T SH, CMP, LIPID #### [facility] [address] [place] [address] Dr. Isiah Donohue MCV (RBC) [Entitic vol] 89.0 fL Normal 80.0-94.0 [facility] Comment on above: Performed By: #### T SH, CMP, LIPID #### [facility] [address] [place] [address] Dr. Isiah Donohue MONO # 0.6 103/ul Normal 0.3-0.8 [facility] Comment on above: Performed By: #### T SH, CMP, LIPID #### [facility] [address] [place] [address] Dr. Isiah Donohue Monocytes/100 WBC (Bld) 10.2 % Normal 1.7-12.0 [facility] Comment on above: Performed By: #### T SH, CMP, LIPID #### [facility] [address] [place] [address] Dr. Isiah Donohue NEUT # 4.9 103/ul Normal 1.4-6.5 [facility] Comment on above: Performed By: #### T SH, CMP, LIPID #### [facility] [address] [place] [address] Dr. Isiah Donohue Neutrophils/100 WBC (Bld) 78.5 % Critically high 43.0-75.0 [facility] Comment on above: Performed By: #### T SH, CMP, LIPID #### [facility] [address] [place] [address] Dr. Isiah Donohue Platelet mean volume (Bld) [Entitic vol] 9.8 fL Normal 9.5-13.5 [facility] Comment on above: Performed By: #### T NGUYỄN KOROMA, LIPID #### [facility] [address] [place] [address] Dr. Isiah Donohue PLT 179 103/ul Normal 150-450 [facility] Comment on above: Performed By: #### T NGUYỄN KOROMA, LIPID #### [facility] [address] [address] [address] Isiah Donohue RBC 4.54 106/ul Critically low 4.70-6.10 [facility] Comment on above: Performed By: #### T NGUYỄN KOROMA, LIPID #### [facility] [address] [address] [address] Isiah Donohue WBC 6.3 103/ul Normal 4.0-11.0 [facility] Comment on above: Performed By: #### T NGUYỄN KOROMA, LIPID #### [facility] [address] [address] [address] Isiah Donohue CULTURE BLOODon 09-24-2022 Microscopic examination of blood, culture Culture Observations: NO GROWTH AT 36-48 HOURS. FINAL TO FOLLOW. Normal [facility] Comment on above: Performed By: #### T NGUYỄN KOROMA, LIPID #### [facility] [address] [place] [address] Dr. Isiah Donohue [facility]-19 [facility]13 SARS-CoV-2 (COVID-19) RNA EDWIN+probe Ql (Unsp spec) Not detected Normal NOT DETECTED [facility] Comment on above: Result Comment: THIS TEST IS NOT APPROVED BY THE FDA. IT HAS BEEN AUTHORIZED FOR USE UNDER AN EMERGENCY USE AUTHORIZATION. Performed By: #### T NGUYỄN KOROMA, LIPID #### [facility] [address] [place] [address] Dr. Isiah Donohue ER URINE PROFILEon 3 Bilirubin Ql (U) Negative Normal NEGATIVE [facility] Comment on above: Performed By: #### T GA CMP, LIPID #### [facility] [address] [address] [address] Isiah Donohue Clarity (U) CLEAR Normal CLEAR [facility] Comment on above: Performed By: #### T SH, CMP, LIPID #### [facility] [address] [address] [address] Isiah Donohue Color (U) YELLOW Normal YELLOW [facility] Comment on above: Performed By: #### T SH, CMP, LIPID #### [facility] [address] [address] [address] Isiah Donohue ERUAHJeremy A micrscopic examination will be performed if indicated. Normal [facility] Comment on above: Performed By: #### T SH, CMP, LIPID #### [facility] [address] [place] [address] Dr. Isiah Donohue Glucose Ql (U) Negative Normal NEGATIVE [facility] Comment on above: Performed By: #### T SH, CMP, LIPID #### [facility] [address] [place] [address] Dr. Isiah Donohue Hemoglobin Ql (U) MODERATE Abnormal NEGATIVE [facility] Comment on above: Performed By: #### T SH, CMP, LIPID #### [facility] [address] [place] [address] Dr. Isiah Donohue Ketones Ql (U) Negative Normal NEGATIVE [facility] Comment on above: Performed By: #### T SH, CMP, LIPID #### [facility] [address] [place] [address] Dr. Isiah Donohue LEUKOCYTES Negative Normal NEGATIVE [facility] Comment on above: Performed By: #### T SH, CMP, LIPID #### [facility] [address] [place] [address] Dr. Isiah Donohue Nitrite Ql (U) Negative Normal NEGATIVE [facility] Comment on above: Performed By: #### T SH, CMP, LIPID #### [facility] [address] [place] [address] Dr. Isiah Donohue pH (U) 6.0 [pH] Normal 5-9 [facility] Comment on above: Performed By: #### T SH, CMP, LIPID #### [facility] [address] [place] [address] Dr. Isiah Donohue Protein (U) [Mass/Vol] 100 mg/dL Abnormal NEGATIVE/ TRACE [facility] Comment on above: Performed By: #### T SH, CMP, LIPID #### [facility] [address] [address] [address] Isiah Donohue SPEC GRAVITY 1.015 Normal 1.005-<=1.025 [facility] Comment on above: Performed By: #### T SH, CMP, LIPID #### [facility] [address] [place] [address] Dr. Isiah Donohue UR MICRO IND INDICATED Normal [facility] Comment on above: Performed By: #### T SH, CMP, LIPID #### [facility] [address] [place] [address] Dr. Isiah Donohue Urobilinogen Qn (U) 1.0 {Danny'U}/dL Normal 0.2 - 1. 0 [facility] Comment on above: Performed By: #### T SH, CMP, LIPID #### [facility] [address] [place] [address] Dr. Isiah Donohue LACTATE/LACTIC ACIDon 2022 Lactate [Moles/Vol] 0.9 mmol/L Normal 0.4-2.0 [facility] Comment on above: Performed By: #### T SH, CMP, LIPID #### [facility] [address] [place] [address] Dr. Isiah Donohue LIPASEon 09-24-2022 Lipase [Catalytic activity/Vol] 43.0 U/L Critically low 73.0-393.0 [facility] Comment on above: Performed By: #### C MP, BNP, LIPA, HSTROPN #### [facility] [address] [place] [address] Dr. Isiah Donohue PH VENOUS BLOODon 09-24-2022 PCO2 VENOUS 38.5 mmHg Critically low 40.0-52.0 [facility] Comment on above: Performed By: #### T SH, CMP, LIPID #### [facility] [address] [place] [address] Dr. Isiah Donohue pH VENOUS 7.443 Critically high 7.330-7.430 [facility] Comment on above: Performed By: #### T SH, CMP, LIPID #### [facility] [address] [place] [address] Dr. Isiah Donohue PROF 14(COMP METB)on 023 Albumin [Mass/Vol] 2.7 g/dL Critically low 3.4-5.0 [facility] Comment on above: Performed By: #### C MP, BNP, LIPA, HSTROPN #### [facility] [address] [place] [address] Dr. Isiah Donohue Albumin/Globulin [Mass ratio] 0.6 {ratio} Normal [facility] Comment on above: Performed By: #### C MP, BNP, LIPA, HSTROPN #### [facility] [address] [place] [address] Dr. Isiah Donohue ALP [Catalytic activity/Vol] 114 U/L Normal 46-116 [facility] Comment on above: Performed By: #### C MP, BNP, LIPA, HSTROPN #### [facility] [address] [place] [address] Dr. Isiah Donohue ALT [Catalytic activity/Vol] 45 U/L Normal 16-63 [facility] Comment on above: Performed By: #### C MP, BNP, LIPA, HSTROPN #### [facility] [address] [place] [address] Dr. Isiah Donohue Anion gap [Moles/Vol] 9.9 mmol/L Normal [facility] Comment on above: Performed By: #### C MP, BNP, LIPA, HSTROPN #### [facility] [address] [place] [address] Dr. Isiah Donohue AST [Catalytic activity/Vol] 57 U/L Critically high 15-37 [facility] Comment on above: Performed By: #### C MP, BNP, LIPA, HSTROPN #### [facility] [address] [place] [address] Dr. Isiah Donohue Bilirubin [Mass/Vol] 0.3 mg/dL Normal 0.2-1.0 [facility] Comment on above: Performed By: #### C MP, BNP, LIPA, HSTROPN #### [facility] [address] [address] [address] Isiah Donohue Calcium [Mass/Vol] 8.6 mg/dL Normal 8.5-10.1 [facility] Comment on above: Performed By: #### C MP, BNP, LIPA, HSTROPN #### [facility] [address] [address] [address] Isiah Donohue Chloride [Moles/Vol] 101 mmol/L Normal 98-107 [facility] Comment on above: Performed By: #### C MP, BNP, LIPA, HSTROPN #### [facility] [address] [place] [address] Dr. Isiah Donohue CO2 [Moles/Vol] 25.7 mmol/L Normal 21.0-32.0 [facility] Comment on above: Performed By: #### C MP, BNP, LIPA, HSTROPN #### [facility] [address] [address] [address] Isiah Donohue Creatinine [Mass/Vol] 1.09 mg/dL Normal 0.70-1.30 [facility] Comment on above: Performed By: #### C MP, BNP, LIPA, HSTROPN #### [facility] [address] [address] [address] Isiah Donohue EGFR-AF COLOMBIAN >60 Normal >=60 [facility] Comment on above: Performed By: #### C MP, BNP, LIPA, HSTROPN #### [facility] [address] [address] [address] Isiah Donohue EGFR-NON AF COLOMBIAN >60 Normal >=60 [facility] Comment on above: Performed By: #### C MP, BNP, LIPA, HSTROPN #### [facility] [address] [address] [address] Isiah Donohue Globulin (S) [Mass/Vol] 4.2 g/dL Normal [facility] Comment on above: Performed By: #### C MP, BNP, LIPA, HSTROPN #### [facility] [address] [place] [address] Dr. Isiah Donohue Glucose [Mass/Vol] 117 mg/dL Critically high 74-106 [facility] Comment on above: Performed By: #### C MP, BNP, LIPA, HSTROPN #### [facility] [address] [address] [address] Isiah Donohue Potassium [Moles/Vol] 3.6 mmol/L Normal 3.5-5.1 [facility] Comment on above: Performed By: #### C MP, BNP, LIPA, HSTROPN #### [facility] [address] [place] [address] Dr. Isiah Donohue Protein [Mass/Vol] 6.9 g/dL Normal 6.4-8.2 [facility] Comment on above: Performed By: #### C MP, BNP, LIPA, HSTROPN #### [facility] [address] [address] [address] Isiah Donohue Sodium [Moles/Vol] 133 mmol/L Critically low 136-145 [facility] Comment on above: Performed By: #### C MP, BNP, LIPA, HSTROPN #### [facility] [address] [place] [address] Dr. Isiah Donohue Urea nitrogen [Mass/Vol] 13.0 mg/dL Normal 7.0-18.0 [facility] Comment on above: Performed By: #### C MP, BNP, LIPA, HSTROPN #### [facility] [address] [place] [address] Dr. Isiah Donohue Urea nitrogen/Creatinine [Mass ratio] 11.9 mg/mg Normal [facility] Comment on above: Performed By: #### C MP, BNP, LIPA, HSTROPN #### [facility] [address] [place] [address] Dr. Isiah Donohue PROTIMEon 09-24-2022 INR Coag (PPP) [Relative time] 1.05 {INR} Normal [facility] Comment on above: Performed By: #### P T #### [facility] [address] [place] [address] Dr. Isiah Donohue INR GUIDELINES SEE BELOW Normal [facility] Comment on above: Result Comment: TAI RED INR: 2.0 - 3.0 CONDITIONS NOT LISTED BELOW 2.5 - 3.5 FOR PROSTHETIC HEART VALVE REPLACEMENT 2.5 - 3.5 RECURRENT THROMBOSIS Performed By: #### P T #### [facility] [address] [place] [address] Dr. Isiah Donohue PT Coag (PPP) [Time] 11.1 s Normal 9.0-11.6 [facility] Comment on above: Performed By: #### P T #### [facility] [address] [place] [address] Dr. Isiah Donohue SYMPTOMATIC COVID-19 ANTIGEN on 09-24-2022 EUA Statement SEE BELOW Normal [facility] Comment on above: Result Comment: This test has not been FDA cleared or approved, but has been authorized by the FDA under an Emergency Use Authorization (EUA) for use by authorized laboratories certified under CLIA that meet the requirements to perform moderate or high complexity testing. This test has been authorized only for the detection of proteins from SARS-CoV-2, not for any other viruses or pathogens. The emergency use of this test is authorized for the duration of the declaration that circumstances exist justifying the authorization of emergency use of in vitro diagnostic tests for detection and/or diagnosis of Covid-19 under section 564(b)(1) of the Act, 21 U.S.C. 360bbb-3(b)(1), unless the declaration is terminated or authorization is revoked sooner. Performed By: #### C VDAGS #### [facility] [address] [place] [address] Dr. Isiah Donohue SARS-CoV-2 (COVID-19) RNA EDWIN+probe Ql (Unsp spec) Negative Normal NEGATIVE [facility] Comment on above: Performed By: #### C VDAGS #### [facility] [address] [place] [address] Dr. Isiah Donohue TROPONIN, HIGH SENSITIVITYon 09-24-2022 HSTROP 6.9 pg/mL Normal 4.0-76.1 [facility] Comment on above: Result Comment: CUT- OFF POINTS HAVE BEEN ESTABLISHED BASED ON THE FOURTH UNIVERSAL DEFINITIONS OF MYOCARDIAL INFARCTION. THE UPPER REFERENCE LIMIT (URL) OF TROPONIN, DEFINED THE 99TH PERCENTILE OF cTnI DISTRIBUTION IN A REFERENCE POPULATION, HAS BEEN CONFIRMED THE DECISION THRESHOLD FOR CA DIAGNOSIS. Performed By: #### C MP, BNP, LIPA, HSTROPN #### [facility] [address] [place] [address] Dr. Isiah Donohue URINE MICROSCOPIC ONLYon BACTERIA TRACE Abnormal NONE SEEN [facility] Comment on above: Performed By: #### T SH, CMP, LIPID #### [facility] [address] [place] [address] Dr. Isiah Donohue Bacteria identified Cx Nom (U) NOT INDICATED Normal [facility] Comment on above: Performed By: #### T SH, CMP, LIPID #### [facility] [address] [place] [address] Dr. Isiah Donohue CAST SEEN Abnormal NONE SEEN [facility] Comment on above: Performed By: #### T SH, CMP, LIPID #### [facility] [address] [place] [address] Dr. Isiah Donohue Crystals LM Nom (Urine sed) NONE SEEN Normal NONE SEEN [facility] Comment on above: Performed By: #### T SH, CMP, LIPID #### [facility] [address] [place] [address] Dr. Isiah Donohue Epithelial cells LM Ql (Urine sed) FEW Abnormal NONE SEEN /RARE [facility] Comment on above: Performed By: #### T SH, CMP, LIPID #### [facility] [address] [place] [address] Dr. Isiah Donohue HYALINE CAST RARE Normal [facility] Comment on above: Performed By: #### T SH, CMP, LIPID #### [facility] [address] [place] [address] Dr. Isiah Donohue MUCOUS NONE SEEN Normal NONE SEEN [facility] Comment on above: Performed By: #### T SH, CMP, LIPID #### [facility] [address] [place], [place] [address] Dr. Isiah Donohue RBC 5-10 Abnormal 0-2 [facility] Comment on above: Performed By: #### T SH, CMP, LIPID #### [facility] [address] [place], [place] [address] Dr. Isiah Donohue WBC 0-2 Abnormal NONE SEEN [facility] Comment on above: Performed By: #### T SH, CMP, LIPID #### [facility] [address] [place], [place] [address] Dr. Isiah Donohue ED Clinical Summaryon 2022 ED Clinical Summary [facility] [address] [place] [address] Clinical Summary PERSON INFORMATION Name: JOHANN WONG Age: 62 Years Sex: MALE : 1960 MRN: Acct#: Visit Reason: UC - Cough; FEVER, COUGH Arrival: 09/23/2022 14:09:49 Discharge: 09/23/2022 15:10:00 LOS: 000 01:01 Check In: 09/23/2022 14:09:49 Checkout: 09/23/2022 15:10:00 Address: [address] [place] [address] PCP: LINA FARRIS PROVIDER INFORMATION Provider Role Assigned Unassigned [place] Castro PATTERN CHANGER Nurse 09/23/2022 14:12:12 CHYNA QUIROGA ED PA 09/23/2022 14:13:27 VITALS INFORMATION Vital Sign Triage Latest Temperature Tympanic Temperature Temporal Artery Pulse Rate O2 Sat 93 % 93 % Respiratory Rate Blood Pressure /66 mmHg /66 mmHg MEDICAL INFORMATION Medications Given: Medication Dose Route albuterol (Ventolin HFA 90 mcg/inh inhalation) 90 mcg INH Allergy Information: penicillin PHYSICIAN DOCUMENTATION Patient: JOHANN WONG Age: 62 years Sex: MALE : 1960 Associated Diagnoses: Fever; Elevated blood pressure reading; Cough; Right lower lobe pneumonia Author: CHYNA QUIROGA Subjective 62-year-old male presenting to urgent care for evaluation of cough and fever. Patient indicates over the last 4 to 5 days he has had an ongoing cough and fevers. He states that he started within low-grade fever of 101 on Tuesday and continued cough. He indicates that he has persisted with this cough and his fever increased to 105 on Tuesday and Tuesday. He indicates that yesterday he called a family friend who prescribed him azithromycin which she started and indicates that he had a temperature of 102 today but has continued with coughing. He states he has had bronchitis in the past and is concerned about possible bronchitis. Patient also states he has had a mild sore throat. Indicates he used a home COVID test and this was negative. Denies any abdominal pains, nausea vomiting or problems with bowels or bladder. Denies any pain with urination. Patient denies any previous lung issues such as asthma, COPD or smoking. States he has a recent diagnosis of high blood pressure was just started on medication. Otherwise takes no other medications or having any other medical issues. Health Status Allergies: Allergic Reactions (Selected) Severity Not Documented Penicillin- No reactions were documented. Objective CONST: -Well-developed well-nourished. -Acute distress: No -Vitals: reviewed. SKIN: -Gross abnormalities: No EYES: -EOM intact, MARANDA: -Sclera conjunctiva: Unremarkable. ENT: -Pharynx is pink and moist, uvula midline tolerating oral secretions without any problems. No tripoding or high potato voice appreciated NECK: -Supple (wszo-cq-skixs): non-tender. CARD: -Rate and rhythm: Regular -Edema: No -Calf pain: No RESP: -Respiratory effort and chest excursion with respirations: Normal -Breath sounds equal bilaterally: Clear -Wheezes: Very faint mild end expiratory wheeze in the lower lungs -Rales: No BACK: -Signs of pain with movement: No ABD: -Distended: No -Deep palpation: Non-tender, soft, no guarding or rebound tenderness EXT: Gross appearance and use of all four extremities: Unremarkable NEURO: -Patient: alert -Gross CN or Focal Neuro deficits: No -Oriented to: person, place and time. -Appearance and judgment: appropriate. Results Review Results review Lab results: 09/23/2022 14:28 EDT Streptococcus A Negative Impression and Plan Assessment and Plan: Diagnosis: Fever (CIU31-GV R50.9), Right lower lobe pneumonia (GOM50-EV J18.9), Elevated blood pressure reading (FXX10-ED R03.0), Cough (RSP00-RG R05.9). Orders Orders Radiology: XR Chest 2 Views (Order): 09/23/2022 14:27 EDT Stat, cough, fever, Allow Modification Per Radiologist, Transport Mode: Cart. Orders Laboratory: Rapid Strep (Order): Swab, 09/23/2022 14:28 EDT, Stat collect, Nurse collect. Orders Pharmacy: Ventolin HFA 90 mcg/inh inhalation (Order): 1 puff(s), INH, Once Respiratory Therapy: MDI Instructions (Order): 09/23/2022 14:09 EDT MDI Spacer (Order): 09/23/2022 14:09 EDT. Orders Pharmacy: cefpodoxime 200 mg oral tablet (Prescribe): 200 mg = 1 tab(s), PO, q12hr, for 7 day(s), 14 tab(s), 0 Refill(s) Acidophilus Extra Strength oral capsule (Prescribe): 1 cap(s), PO, Daily, 14 cap(s), 0 Refill(s). . 62-year-old male presenting to urgent care with complaint of fever and cough. He states has had high fevers at home over the last few days, last fever was 102 this morning. Did start azithromycin yesterday given to him by medical provider. States he is also been staying hydrated and getting plenty of rest and fluids along with Mucinex [id number]. I recommended a strep swab along with chest x-ray patient was in agreement. Strep swab is negative, chest x-ray right lower lobe pneumonia as interpreted by radiologist. I explained to the patient that I (more content not included)... Normal [facility] ED Note - Physicianon 2022 ED Note - Physician Patient: JOHANN WONG Age: 62 years Sex: MALE : 1960 Associated Diagnoses: Fever; Elevated blood pressure reading; Cough; Right lower lobe pneumonia Author: CHYNA QUIROGA Subjective 62-year-old male presenting to urgent care for evaluation of cough and fever. Patient indicates over the last 4 to 5 days he has had an ongoing cough and fevers. He states that he started within low-grade fever of 101 on Tuesday and continued cough. He indicates that he has persisted with this cough and his fever increased to 105 on Tuesday and Tuesday. He indicates that yesterday he called a family friend who prescribed him azithromycin which she started and indicates that he had a temperature of 102 today but has continued with coughing. He states he has had bronchitis in the past and is concerned about possible bronchitis. Patient also states he has had a mild sore throat. Indicates he used a home COVID test and this was negative. Denies any abdominal pains, nausea vomiting or problems with bowels or bladder. Denies any pain with urination. Patient denies any previous lung issues such as asthma, COPD or smoking. States he has a recent diagnosis of high blood pressure was just started on medication. Otherwise takes no other medications or having any other medical issues. Health Status Allergies: Allergic Reactions (Selected) Severity Not Documented Penicillin- No reactions were documented. Objective CONST: -Well-developed well-nourished. -Acute distress: No -Vitals: reviewed. SKIN: -Gross abnormalities: No EYES: -EOM intact, MARANDA: -Sclera conjunctiva: Unremarkable. ENT: -Pharynx is pink and moist, uvula midline tolerating oral secretions without any problems. No tripoding or high potato voice appreciated NECK: -Supple (xydo-md-dosde): non-tender. CARD: -Rate and rhythm: Regular -Edema: No -Calf pain: No RESP: -Respiratory effort and chest excursion with respirations: Normal -Breath sounds equal bilaterally: Clear -Wheezes: Very faint mild end expiratory wheeze in the lower lungs -Rales: No BACK: -Signs of pain with movement: No ABD: -Distended: No -Deep palpation: Non-tender, soft, no guarding or rebound tenderness EXT: Gross appearance and use of all four extremities: Unremarkable NEURO: -Patient: alert -Gross CN or Focal Neuro deficits: No -Oriented to: person, place and time. -Appearance and judgment: appropriate. Results Review Results review Lab results: 09/23/2022 14:28 EDT Streptococcus A Negative Impression and Plan Assessment and Plan: Diagnosis: Fever (MBZ59-OB R50.9), Right lower lobe pneumonia (EWD31-MH J18.9), Elevated blood pressure reading (NDM04-YR R03.0), Cough (WAK33-YR R05.9). Orders Orders Radiology: XR Chest 2 Views (Order): 09/23/2022 14:27 EDT Stat, cough, fever, Allow Modification Per Radiologist, Transport Mode: Cart. Orders Laboratory: Rapid Strep (Order): Swab, 09/23/2022 14:28 EDT, Stat collect, Nurse collect. Orders Pharmacy: Ventolin HFA 90 mcg/inh inhalation (Order): 1 puff(s), INH, Once Respiratory Therapy: MDI Instructions (Order): 09/23/2022 14:09 EDT MDI Spacer (Order): 09/23/2022 14:09 EDT. Orders Pharmacy: cefpodoxime 200 mg oral tablet (Prescribe): 200 mg = 1 tab(s), PO, q12hr, for 7 day(s), 14 tab(s), 0 Refill(s) Acidophilus Extra Strength oral capsule (Prescribe): 1 cap(s), PO, Daily, 14 cap(s), 0 Refill(s). . 62-year-old male presenting to urgent care with complaint of fever and cough. He states has had high fevers at home over the last few days, last fever was 102 this morning. Did start azithromycin yesterday given to him by medical provider. States he is also been staying hydrated and getting plenty of rest and fluids along with Mucinex [id number]-ferkibt. I recommended a strep swab along with chest x-ray patient was in agreement. Strep swab is negative, chest x-ray right lower lobe pneumonia as interpreted by radiologist. I explained to the patient that I cannot evaluate him in the urgent care with blood work or any further evaluation indicated he understood and felt comfortable with the chest x-ray and outpatient treatment. Patient is 62 years old, afebrile, blood pressure is 122/66 is currently on blood pressure medication, appears well, denies any shortness of breath, low risk for bad outcome. I discussed continued supportive care at home discussed this in detail with the patient. I indicated he should continue with his azithromycin and I would like to also add cefpodoxime. Patient indicates that he is allergic to penicillin has had cephalosporins in the past has not had any issues with cephalosporins. I did discuss this with medical provider taking care of him. I indicated to the patient that he needs to go directly to the emergency department if he has any recurrent high spiking fevers, shortness of breath, abdominal pains, chest pains, or any other problems. He indicated he understood was in agreement with this, patient (more content not included)... Normal [facility] ED Patient Summaryon 023 ED Patient Summary [facility] ? Urgent Care [address] [place] [address] PATIENT DISCHARGE INSTRUCTIONS Patient Information Name: JOHANN WONG Age: 62 Years Date of : 1960 Reason For Visit: UC - Cough; FEVER, COUGH Arrival Time: 09/23/2022 14:09:49 Primary Care Physician: LINA FARRIS Attending Physician: CHYNA QUIROGA Comment: Patient Education With: Address: When: LINA FARRIS [address] [place], [place] [id number] Business (1) Within 1 to 2 days Comments: Follow-up with your primary care provider next couple days for reevaluation. Continue with plenty of rest and fluids, Tylenol and ibuprofen for any fevers or body aches. Continue with supportive care at home honey as a natural cough suppressant, Vicks VapoRub for congestion, inhaler as needed for coughing fits or wheezing, fresh air and sunshine. Continue antibiotics and probiotic as discussed. Go directly to the emergency department for any recurrent high spiking fevers, trouble breathing, crushing chest pains, abdominal pains, vomiting or any other issues. Hypertension, Adult High blood pressure (hypertension) is when the force of blood pumping through the arteries is too strong. The arteries are the blood vessels that carry blood from the heart throughout the body. Hypertension forces the heart to work harder to pump blood and may cause arteries to become narrow or stiff. Untreated or uncontrolled hypertension can cause a heart attack, heart failure, a stroke, kidney disease, and other problems. A blood pressure reading consists of a higher number over a lower number. Ideally, your blood pressure should be below 120/80. The first ( top ) number is called the systolic pressure. It is a measure of the pressure in your arteries as your heart beats. The second ( bottom ) number is called the diastolic pressure. It is a measure of the pressure in your arteries as the heart relaxes. What are the causes? The exact cause of this condition is not known. There are some conditions that result in or are related to high blood pressure. What increases the risk? Some risk factors for high blood pressure are under your control. The following factors may make you more likely to develop this condition: ? Smoking. ? Having type 2 diabetes mellitus, high cholesterol, or both. ? Not getting enough exercise or physical activity. ? Being overweight. ? Having too much fat, sugar, calories, or salt (sodium) in your diet. ? Drinking too much alcohol. Some risk factors for high blood pressure may be difficult or impossible to change. Some of these factors include: ? Having chronic kidney disease. ? Having a family history of high blood pressure. ? Age. Risk increases with age. ? Race. You may be at higher risk if you are . ? Gender. Men are at higher risk than women before age 45. After age 65, women are at higher risk than men. ? Having obstructive sleep apnea. ? Stress. What are the signs or symptoms? High blood pressure may not cause symptoms. Very high blood pressure (hypertensive crisis) may cause: ? Headache. ? Anxiety. ? Shortness of breath. ? Nosebleed. ? Nausea and vomiting. ? Vision changes. ? Severe chest pain. ? Seizures. How is this diagnosed? This condition is diagnosed by measuring your blood pressure while you are seated, with your arm resting on a flat surface, your legs uncrossed, and your feet flat on the floor. The cuff of the blood pressure monitor will be placed directly against the skin of your upper arm at the level of your heart. It should be measured at least twice using the same arm. Certain conditions can cause a difference in blood pressure between your right and left arms. Certain factors can cause blood pressure readings to be lower or higher than normal for a short period of time: ? When your blood pressure is higher when you are in a health care provider's office than when you are at home, this is called white coat hypertension. Most people with this condition do not need medicines. ? When your blood pressure is higher at home than when you are in a health care provider's office, this is called masked hypertension. Most people with this condition may need medicines to control blood pressure. If you have a high blood pressure reading during one visit or you have normal blood pressure with other risk factors, you may be asked to: ? Return on a different day to have your blood pressure checked again. ? Monitor your blood pressure at home for 1 week or longer. If you are diagnosed with hypertension, you may have other blood or imaging tests to help your health care provider understand your overall risk for other conditions. How is this treated? This condition is treated by making healthy lifestyle changes, such as eating healthy foods, exercising more, and reducing your alcohol intake. Your health care p (more content not included)... Normal [facility] Strep Aon 09-23-2022 Strep procedure control Pass Normal [facility] Comment on above: Performed By: #### [id number] ####[facility] (DEFAULT)[address] [place] [address] Streptococcus A Negative Normal Negative [facility] Comment on above: Performed By: #### [id number] ####[facility] (DEFAULT)[address] [place] [id number] [facility] 023 Urgent Care Record [facility] ? Urgent Care [address] [place] [address] PATIENT DISCHARGE INSTRUCTIONS Patient Information Name: JOHANN WONG Age: 62 Years Date of : 1960 Reason For Visit: UC - Cough; FEVER, COUGH Arrival Time: 09/23/2022 14:09:49 Primary Care Physician: LINA FARRIS Attending Physician: CHYNA QUIROGA Comment: Visit Diagnosis: Diagnoses This Visit Cough (R05.9) Elevated blood pressure reading (R03.0) Fever (R50.9) Right lower lobe pneumonia (J18.9) UC - Cough ([id number]) If you received any narcotics, sedation, or any other medication that causes drowsiness for the next 24 hours, unless otherwise directed: ? Do not drive a car. ? Do not operate machinery such as power tools, lawn mowers, drills, sewing machines, or stoves ? Avoid alcoholic beverages and drugs for allergies, nerves, or sleep ? Do not make important personal or business decisions or sign any legal documents With: Address: When: LINA FARRIS [address] [place] [id number] Business (1) Within 1 to 2 days Comments: Follow-up with your primary care provider next couple days for reevaluation. Continue with plenty of rest and fluids, Tylenol and ibuprofen for any fevers or body aches. Continue with supportive care at home honey as a natural cough suppressant, Vicks VapoRub for congestion, inhaler as needed for coughing fits or wheezing, fresh air and sunshine. Continue antibiotics and probiotic as discussed. Go directly to the emergency department for any recurrent high spiking fevers, trouble breathing, crushing chest pains, abdominal pains, vomiting or any other issues. Medication Information: The exam and treatment you received today in the [facility] were for an urgent problem and are not intended as complete care. It is important for you to follow up with a doctor, nurse practitioner, or physician?s entry level administrative assistant for ongoing care. If your symptoms become worse or you do not improve as expected and you are unable to reach your usual health care provider, you should return to the Emergency Department, we are available 24 hours a day. For those patients who have received Radiology results, the interpretation of your X-ray as given to you by our Urgent Care physician is only a preliminary report. The Radiologist will review your films and if there is a change in the diagnosis you will be notified by phone. Please make sure you have provided a working phone number so we can reach you if necessary. In the event that you had a lab culture while you were a patient in the Urgent Care, you will be notified by phone if there is a need to change your antibiotic. Please make sure you have provided a working phone number so we can reach you if necessary. [facility] Urgent [facility] has provided you with a complete list of medications post discharge. Please inform your case consultant/provider of your visit and for further instruction on these medications. Any specific questions regarding your chronic medications and dosages should be discussed with your primary care physician(s) and/or pharmacist. New Medications [facility] #[id number], [address], [place] [id number], [phone] cefpodoxime (cefpodoxime 200 mg oral tablet) 1 tab(s) Oral Every 12 hours scheduled time for 7 Days. Refills: 0. lactobacillus acidophilus (Acidophilus Extra Strength oral capsule) 1 cap(s) Oral every day. Refills: 0. Additional medications on your home medication list not specifically addressed. Please contact the ordering physician if you have questions about these medications. olmesartan (olmesartan 20 mg oral tablet) 1 tab(s) Oral every day. TAKE 1 TABLET BY MOUTH EVERY DAY FOR 90 DAYS. vitamin E Oral every day. Visit Information Allergies: Substance Reaction Symptoms Type Comments penicillin Drug Vital Signs: Vitals and Measurements this Visit (last charted value for your 09/23/2022 visit) Vital Signs This Visit Temperature Temporal: 37.5 DegC Peripheral Pulse Rate: 65 bpm Respiratory Rate: 18 br/min Systolic Blood Pressure: 122 mmHg Diastolic Blood Pressure: 66 mmHg SpO2: 93 % Oxygen Therapy: Room air Blood Pressure Method: Manual Measurements This Visit Height/Length Measured: 167.64 cm Weight Measured: 111.13 kg Body Mass Index: 39.54 kg/m2 BSA Measured: 2.27 m2 Problems List: Problem Onset Comments No Problems found Patient Education Hypertension, Adult High blood pressure (hypertension) is when the force of blood pumping through the arteries is too strong. The arteries are the blood vessels that carry blood from the heart throughout the body. Hypertension forces the heart to work harder to pump blood and may cause arteries to become narrow or stiff. Untreated or uncontrolled hypertension can cause a heart attack, heart failure, a stroke, kidney disease, and other (more content not included)... Normal [facility] XR Chest 2 Viewson 3 XR Chest 2 Views EXAM: CHEST 2 VIEWS HISTORY: cough, fever TECHNIQUE: PA and lateral views chest. COMPARISON: None. FINDINGS: There is right lower lobe consolidation. Mild atelectasis at the left lung base, otherwise clear. No pleural effusion or pneumothorax. Pulmonary vasculature is within normal limits. There is mild tortuosity of the thoracic aorta, with normal heart size. IMPRESSION: 1. Right lower lobe pneumonia. Recommend clinical and radiographic follow-up to resolution with treatment. Final Dictated by: MD Fried Wincha Dictated DT/TM: 09/23/22 2:58 Signed (Electronic Signature): MD Fried Wincha 09/23/22 2:59 pm Technologist: Enoc VILLEGAS Normal [facility] FREE T4on 08-06-2022 Free T4 [Mass/Vol] 0.95 ng/dL Normal 0.76-1.46 [facility] Comment on above: Performed By: #### T GA, CMP, LIPID #### [facility] [address] [address] [address] Isiah Donohue TSH W/ REFLEX TO FT4on 08-06 TSH 4.498 uIU/mL Critically high 0.358-3.740 [facility] Comment on above: Performed By: #### T GA, CMP, LIPID #### [facility] [address] [address] [address] Isiah Donohue PSA, FREE AND TOTAL RATIOon 06-10-2022 % Free PSA 14.8 % Normal [facility] Comment on above: Result Comment: The table below lists the probability of prostate cancer for men with non-suspicious CHELY results and total PSA between 4 and 10 ng/mL, by patient age (Catalzena et al, LEONEL 1998, 279:1542). % Free PSA 50-64 yr 65-75 yr 0.00-10.00% 56% 55% 10.01-15.00% 24% 35% 15.01-20.00% 17% 23% 20.01-25.00% 10% 20% >25.00% 5% 9% Please note: Jamel et al did not make specific recommendations regarding the use of percent free PSA for any other population of men. Performed By: #### P SAFREE #### [facility] [address] [address] [address] Isiah Donohue Prostate specific Ag [Mass/Vol] 2.9 ng/mL Normal 0.0-4.0 [facility] Comment on above: Result Comment: Robert norman ECLIA methodology. . According to the [place] [employer], Serum PSA should decrease and remain at undetectable levels after radical prostatectomy. The AUA defines biochemical recurrence as an initial PSA value 0.2 ng/mL or greater followed by a subsequent confirmatory PSA value 0.2 ng/mL or greater. Values obtained with different assay methods or kits cannot be used interchangeably. Results cannot be interpreted as absolute evidence of the presence or absence of malignant disease. Performed By: #### P SAFREE #### [facility] [address] [place], [place] [address] Dr. Isiah Donohue PSA, Free 0.43 ng/mL Normal N/A [facility] Comment on above: Result Comment: Robert norman ECLIA methodology. Performed By: #### P SAFREE #### [facility] [address] [place], [place] [address] Dr. Isiah Donohue [facility] echo transthoracicon [facility] echo transthoracic [facility] [place] [address] Echocardiogram Signed Patient: Johann Wong MR#: [id number] 60 : 1960 Acct:[id number] Age/Sex: 61 / M ADM Date: 05/31/22 Loc: Room: Type: [facility] Attending Dr: Lina Farris DO Ordering Provider: Lina Farris DO Date of Service: 05/31/22/ [facility] echo transthoracic: Murmur. Copies to: Carlita Mendez MD, [facility] Lina Farris DO Weight: 240 lb Performed By: Bonnie Wallace [facility] BSA: 2.2 m2 BP: 158/90 mmHg HR: 59 Reason For Study: Murmur. History: No cardiac history per patient Interpretation Summary Mild concentric left ventricular hypertrophy. Ejection Fraction = 60-65%. A variety of Doppler measurements indicate impaired left ventricular relaxation, which is associated with grade I/IV or mild diastolic dysfunction. There is no prior echocardiogram noted for this patient. Procedure/Quality: A two-dimensional transthoracic echocardiogram with color flow and Doppler was performed. The study was technically good in quality. There is no prior echocardiogram noted for this patient. Left Ventricle: Mild concentric left ventricular hypertrophy. Left ventricular systolic function is normal. Ejection Fraction = 60-65%. A variety of Doppler measurements indicate impaired left ventricular relaxation, which is associated with grade I/IV or mild diastolic dysfunction. Left Atrium: The left atrium appears normal in size. The atrial septum appears normal. Right Atrium: The right atrium appears normal in size. Right Ventricle: The right ventricular size, thickness and function are normal. Aortic Valve: The aortic valve is normal in structure and function. Mitral Valve: The mitral valve is normal in structure and function. Tricuspid Valve: The tricuspid valve is normal in structure and function. Pulmonic Valve: The pulmonic valve is not well visualized. Arteries: Borderline aortic root dilatation. Pericardium/Pleura: No pericardial effusion seen. There is no pleural effusion. IVC/Hepatic Viens: The IVC is normal in size with an inspiratory collapse of greater then 50%, suggesting normal right atrial pressure. Miscellaneous: No thrombus, vegetation or mass is seen. Measurements with Normals IVSd: 1.4 cm (0.7-1.1 cm)LVIDd: 5.7 cm (3.7-5.4 cm) LVPWd: 1.3 cm (0.7-1.1 cm)LVIDs: 3.9 cm (2.3-3.6 cm) LA dimension: 4.1 cm (2.3-4.0 cm)Ao root diam: 3.8 cm(2.0-3.6 cm) asc Aorta Diam: 3.8 cm(2.1-3.4cm) Doppler with Normals LV V1 max: 99.0 cm/sec (0.7-1.7m/s)MV E max kt: 59.6 cm/sec(0.8-1.3m/s) MV A max kt: 90.4 cm/sec(0.0-0.0m/s) MV E/A: 0.66 (<1.5) MMode/2D Measurements Calculations TAPSE: 2.3 cm FS: 30.3 % Ao root area: LVOT diam: 2.4 cm RV S Kt: EDV(Teich): 11.1 cm2 LVOT area: 4.6 cm2 12.8 cm/sec 157.2 ml ESV(Teich): 67.7 ml EF(Teich): 56.9 % __ LVLd ap4: 8.7 cm SV(MOD-sp4): LAV(MOD-sp4): LA A2 area: 14.9 cm2 EDV(MOD-sp4): 77.7 ml 34.7 ml 120.0 ml LAV(MOD-sp2): LA A4 area: 15.9 cm2 LVLs ap4: 6.4 cm 35.6 ml LA length (vol): ESV(MOD-sp4): 5.3 cm 42.3 ml LA vol: 37.8 ml EF(MOD-sp4): 64.7 % LA vol index: 17.5 ml/m2 Doppler Measurements Calculations MV dec time: E/E' lat: 6.8 MV dec slope: Ao V2 max: 0.19 sec E/E' med: 9.1 115.6 cm/sec 308.9 cm/sec2 Ao max P.3 mmHg Ao mean P.1 mmHg Ao V2 mean: 83.3 cm/sec Ao V2 VTI: 24.4 cm AUBRIE(I,D): 4.0 cm2 AUBRIE(V,D): 4.0 cm2 __ LV V1 max PG: RAP systole: 3.9 mmHg 8.0 mmHg LV V1 mean P.5 mmHg LV V1 mean: 75.7 cm/sec LV V1 VTI: 21.0 cm Electronically signed by: CARLITA MENDEZ MD, [facility] on 06/01/2022 07:33 AM Transcribed By: SCV Performed At: 05/31/22 1542 Signed By: Carlita Mendez MD, [facility] 06/01/22 0733 [facility] CBC AUTO DIFFon 05-28-2022 BASO # 0.0 103/ul Normal 0.0-0.1 [facility] Comment on above: Performed By: #### T NGUYỄN KOROMA LIPID #### [facility] [address] [address] [address] Isiah Donohue Basophils/100 WBC (Bld) 0.8 % Normal 0.2-2.0 [facility] Comment on above: Performed By: #### T NGUYỄN KOROMA, LIPID #### [facility] [address] [place] [address] Dr. Isaih Donohue EO # 0.1 103/ul Normal 0.0-0.7 [facility] Comment on above: Performed By: #### T SH, CMP, LIPID #### [facility] [address] [place] [address] Dr. Isiah Donohue Eosinophils/100 WBC (Bld) 2.7 % Normal 0.9-7.0 [facility] Comment on above: Performed By: #### T SH, CMP, LIPID #### [facility] [address] [place] [address] Dr. Isiah Donohue Erythrocyte distribution width (RBC) [Ratio] 13.0 % Normal 11.0-15.0 [facility] Comment on above: Performed By: #### T SH, CMP, LIPID #### [facility] [address] [place] [address] Dr. Isiah Donohue Hematocrit (Bld) [Volume fraction] 48.8 % Normal 42.0-54.0 [facility] Comment on above: Performed By: #### T SH, CMP, LIPID #### [facility] [address] [place] [address] Dr. Isiah Donohue Hemoglobin (Bld) [Mass/Vol] 14.6 g/dL Normal 14.0-18.0 [facility] Comment on above: Performed By: #### T SH, CMP, LIPID #### [facility] [address] [place] [address] Dr. Isiah Donohue IG # 0.01 10e3/ul Normal 0.00-0.03 [facility] Comment on above: Performed By: #### T SH, CMP, LIPID #### [facility] [address] [place] [address] Dr. Isiah Donohue IG % 0.2 % Normal 0.0-0.5 [facility] Comment on above: Performed By: #### T SH, CMP, LIPID #### [facility] [address] [place] [address] Dr. Isiah Donohue LYMPH # 1.5 103/ul Normal 1.2-3.8 [facility] Comment on above: Performed By: #### T SH, CMP, LIPID #### [facility] [address] [place] [address] Dr. Isiah Donohue Lymphocytes/100 WBC (Bld) 30.0 % Normal 20.5-60.0 [facility] Comment on above: Performed By: #### T SH, CMP, LIPID #### [facility] [address] [place] [address] Dr. Isiah Donohue MANUAL DIFF REQ NO Normal [facility] Comment on above: Performed By: #### T SH, CMP, LIPID #### [facility] [address] [place] [address] Dr. Isiah Donohue MCH (RBC) [Entitic mass] 28.9 pg Normal 25.9-34.0 [facility] Comment on above: Performed By: #### T SH, CMP, LIPID #### [facility] [address] [place] [address] Dr. Isiah Donohue MCHC (RBC) [Mass/Vol] 29.9 g/dL Normal 29.9-35.2 [facility] Comment on above: Performed By: #### T SH, CMP, LIPID #### [facility] [address] [place] [address] Dr. Isiah Donohue MCV (RBC) [Entitic vol] 96.6 fL Critically high 80.0-94.0 [facility] Comment on above: Performed By: #### T SH, CMP, LIPID #### [facility] [address] [place] [address] Dr. Isiah Donohue MONO # 0.6 103/ul Normal 0.3-0.8 [facility] Comment on above: Performed By: #### T SH, CMP, LIPID #### [facility] [address] [place] [address] Dr. Isiah Donohue Monocytes/100 WBC (Bld) 11.2 % Normal 1.7-12.0 [facility] Comment on above: Performed By: #### T SH, CMP, LIPID #### [facility] [address] [address] [address] Isiah Donohue NEUT # 2.7 103/ul Normal 1.4-6.5 [facility] Comment on above: Performed By: #### T SH, CMP, LIPID #### [facility] [address] [place] [address] Dr. Isiah Donohue Neutrophils/100 WBC (Bld) 55.1 % Normal 43.0-75.0 [facility] Comment on above: Performed By: #### T SH, CMP, LIPID #### [facility] [address] [place] [address] Dr. Isiah Donohue Platelet mean volume (Bld) [Entitic vol] 10.7 fL Normal 9.5-13.5 [facility] Comment on above: Performed By: #### T SH, CMP, LIPID #### [facility] [address] [place] [address] Dr. Isiah Donohue PLT 204 103/ul Normal 150-450 [facility] Comment on above: Performed By: #### T SH, CMP, LIPID #### [facility] [address] [place] [address] Dr. Isiah Donohue RBC 5.05 106/ul Normal 4.70-6.10 [facility] Comment on above: Performed By: #### T SH, CMP, LIPID #### [facility] [address] [place] [address] Dr. Isiah Donohue WBC 4.9 103/ul Normal 4.0-11.0 [facility] Comment on above: Performed By: #### T SH, CMP, LIPID #### [facility] [address] [place] [address] Dr. Isiah Donohue FREE T4on 05-28-2022 Free T4 [Mass/Vol] 0.94 ng/dL Normal 0.76-1.46 [facility] Comment on above: Performed By: #### T SH, CMP, LIPID #### [facility] [address] [place] [address] Dr. Isiah Donohue LIPID PROFILEon 05-28-2022 CHOL-HDL RATIO NORM SEE BELOW Normal [facility] Comment on above: Result Comment: 3.3 - 4.4 LOW RISK 4.4 - 7.1 AVERAGE RISK 7.1 - 11.0 MODERATE RISK >11.0 HIGH RISK Performed By: #### T SH, CMP, LIPID #### [facility] [address] [address] [address] Isiah Donohue Cholesterol [Mass/Vol] 200 mg/dL Normal <=200 [facility] Comment on above: Performed By: #### T SH, CMP, LIPID #### [facility] [address] [address] [address] Isiah Donohue Cholesterol in HDL [Mass/Vol] 48 mg/dL Normal 40-60 [facility] Comment on above: Performed By: #### T GA CMP, LIPID #### [facility] [address] [address] [address] Isiah Donohue Cholesterol in LDL [Mass/Vol] 138.4 mg/dL Normal [facility] Comment on above: Performed By: #### T GA CMP, LIPID #### [facility] [address] [address] [address] Isiah Donohue Cholesterol.total/Cho lesterol in HDL [Mass ratio] 4.2 {ratio} Normal [facility] Comment on above: Performed By: #### T GA CMP, LIPID #### [facility] [address] [address] [address] Isiah Donohue HDL NORMAL > or = 60 mg/dl - LOW CARDIOVASCULAR RISK <40 mg/dl - HIGH CARDIOVASCULAR RISK Normal [facility] Comment on above: Performed By: #### T GA, CMP, LIPID #### [facility] [address] [address] [address] Isiah Donohue LDL CALC NORMAL SEE BELOW Normal [facility] Comment on above: Result Comment: <100 mg/dl OPTIMAL 100 - 129 mg/dl NEAR OR ABOVE OPTIMAL 130 - 159 mg/dl BORDERLINE HIGH 160 - 189 mg/dl HIGH >190 mg/dl VERY HIGH Performed By: #### T SH, CMP, LIPID #### [facility] [address] [address] [address] Isiah Donohue Triglyceride [Mass/Vol] 68 mg/dL Normal <=150 [facility] Comment on above: Performed By: #### T SH, CMP, LIPID #### [facility] [address] [place] [address] Dr. Isiah Donohue VLDL CALC 13.6 mg/dL Normal [facility] Comment on above: Performed By: #### T SH, CMP, LIPID #### [facility] [address] [place] [address] Dr. Isiah Donohue PROF 14(COMP METB)on 023 Albumin [Mass/Vol] 3.3 g/dL Critically low 3.4-5.0 [facility] Comment on above: Performed By: #### T SH, CMP, LIPID #### [facility] [address] [place] [address] Dr. Isiah Donohue Albumin/Globulin [Mass ratio] 0.9 {ratio} Normal [facility] Comment on above: Performed By: #### T SH, CMP, LIPID #### [facility] [address] [place] [address] Dr. Isiah Donohue ALP [Catalytic activity/Vol] 99 U/L Normal 46-116 [facility] Comment on above: Performed By: #### T SH, CMP, LIPID #### [facility] [address] [place] [address] Dr. Isiah Donohue ALT [Catalytic activity/Vol] 22 U/L Normal 16-63 [facility] Comment on above: Performed By: #### T SH, CMP, LIPID #### [facility] [address] [place] [address] Dr. Isiah Donohue Anion gap [Moles/Vol] 11.4 mmol/L Normal [facility] Comment on above: Performed By: #### T SH, CMP, LIPID #### [facility] [address] [place] [address] Dr. Isiah Donohue AST [Catalytic activity/Vol] 16 U/L Normal 15-37 [facility] Comment on above: Performed By: #### T SH, CMP, LIPID #### [facility] [address] [place] [address] Dr. Isiah Donohue Bilirubin [Mass/Vol] 0.4 mg/dL Normal 0.2-1.0 [facility] Comment on above: Performed By: #### T SH, CMP, LIPID #### [facility] [address] [place] [address] Dr. Isiah Donohue Calcium [Mass/Vol] 8.7 mg/dL Normal 8.5-10.1 [facility] Comment on above: Performed By: #### T SH, CMP, LIPID #### [facility] [address] [place] [address] Dr. Isiah Donohue Chloride [Moles/Vol] 104 mmol/L Normal 98-107 [facility] Comment on above: Performed By: #### T SH, CMP, LIPID #### [facility] [address] [place] [address] Dr. Isiah Donohue CO2 [Moles/Vol] 29.6 mmol/L Normal 21.0-32.0 [facility] Comment on above: Performed By: #### T SH, CMP, LIPID #### [facility] [address] [place] [address] Dr. Isiah Donohue Creatinine [Mass/Vol] 1.07 mg/dL Normal 0.70-1.30 [facility] Comment on above: Performed By: #### T GA CMP, LIPID #### [facility] [address] [place] [address] Dr. Isiah Donohue EGFR-AF COLOMBIAN >60 Normal >=60 [facility] Comment on above: Performed By: #### T SH, CMP, LIPID #### [facility] [address] [place] [address] Dr. Isiah Donohue EGFR-NON AF COLOMBIAN >60 Normal >=60 [facility] Comment on above: Performed By: #### T SH, CMP, LIPID #### [facility] [address] [place] [address] Dr. Isiah Donohue Globulin (S) [Mass/Vol] 3.5 g/dL Normal [facility] Comment on above: Performed By: #### T SH, CMP, LIPID #### [facility] [address] [place], [place] [id number] Dr. Isiah Donohue Glucose [Mass/Vol] 101 mg/dL Normal 74-106 [facility] Comment on above: Performed By: #### T GA CMP, LIPID #### [facility] [address] [place] [address] Dr. Isiah Donohue Potassium [Moles/Vol] 4.0 mmol/L Normal 3.5-5.1 [facility] Comment on above: Performed By: #### T GA, CMP, LIPID #### [facility] [address] [place] [address] Dr. Isiah Donohue Protein [Mass/Vol] 6.8 g/dL Normal 6.4-8.2 [facility] Comment on above: Performed By: #### T GA CMP, LIPID #### [facility] [address] [place] [address] Dr. Isiah Donohue Sodium [Moles/Vol] 141 mmol/L Normal 136-145 [facility] Comment on above: Performed By: #### T GA CMP, LIPID #### [facility] [address] [place] [address] Dr. Isiah Donohue Urea nitrogen [Mass/Vol] 18.0 mg/dL Normal 7.0-18.0 [facility] Comment on above: Performed By: #### T GA CMP, LIPID #### [facility] [address] [place] [address] Dr. Isiah Donohue Urea nitrogen/Creatinine [Mass ratio] 16.8 mg/mg Normal [facility] Comment on above: Performed By: #### T GA, CMP, LIPID #### [facility] [address] [place] [address] Dr. Isiah Donohue TSHon 05-28-2022 TSH 7.161 uIU/mL Critically high 0.358-3.740 [facility] Comment on above: Performed By: #### T GA, CMP, LIPID #### [facility] [address] [place] [address] Dr. Isiah Donohue Vital Signs Date Time Vital Sign Value Performing Clinician Faci lity 06-28-2022 13:24-0500 Blood Pressure Location Nigel ANDRE [facility] 06-28-2022 13:24-0500 Diastolic blood pressure 78 mm[Hg] Nigel ANDRE [facility] 06-28-2022 13:24-0500 Heart rate 70 /min Nigel ANDRE [facility] 06-28-2022 13:24-0500 Respiratory rate 16 /min Nigel ANDRE [facility] 06-28-2022 13:24-0500 Systolic blood pressure 132 mm[Hg] Nigel ANDRE [facility] Encounters Encounter Date Encounter Type Care Provider Facility Start: 07-01-2023 End: 07-01-2023 ambulatory Nigel ANDRE Facility:[facility] Start: 07-01-2023 End: 07-01-2023 Patient encounter procedure Nigel ANDRE [facility] Start: 05-06-2023 End: 05-06-2023 ambulatory ELISA PERES Not Available Start: 12-09-2022 End: 12-09-2022 ambulatory Chavez Cao Facility:[facility] Start: 09-24-2022 End: 09-24-[address] CHRIST Carson Facility:[facility] Start: 09-23-2022 End: 09-23-2022 ambulatory LINA FARRIS Facility:[facility] Start: 08-06-2022 End: 08-07-2022 ambulatory LINA FARRIS Facility: Start: 06-28-2022 End: 06-28-2022 Patient encounter procedure Nigel ANDRE [facility] Start: 06-09-2022 End: 06-10-[address] NIGEL ANDRE . Facility:[facility] Start: 06-03-2022 Encounter for genera l adult medical examination without abnormal findings LINA FARRIS [facility] Start: 06-02-2022 ambulatory Facility:[facility] Start: 05-31-2022 End: 05-31-2022 ambulatory Lina Farris Facility:[facility] Start: 05-31-2022 End: 05-31-2022 Patient encounter procedure DO Lina Farris Work Phone: [facility] Work Phone: Start: 05-31-2022 End: 05-31-2022 ambulatory DO Lina Farris Work Phone: [facility] Work Phone: Start: 05-28-2022 End: 05-29-2022 ambulatory LINA FARRIS Facility: Start: 05-28-2022 End: 05-29-2022 Encounter for general adult medical examination without abnormal findings LINA FARRIS Facility: Procedures Date Procedure Procedure Detail Performing Clinician Start: 05-28-2022 PSA screening LINA ABREU Comment on above: Performed By: #### P SAD #### [facility] [address] [place] [address] Dr. Isiah ANDRE Knee region structur e (body structure) Nigel ANDRE Immunizations Immunization Date Immunization Notes Care Provider Fa cility 03-17-2021 SARS-CoV-2 (COVID-19 ) mRNA BNT-162b2 vax Nigel ANDRE [facility] 08-19-2020 SARS-CoV-2 (COVID-19 ) mRNA BNT-162b2 vax Nigel ANDRE [facility] 07-28-2020 SARS-CoV-2 (COVID-19 ) mRNA BNT-162b2 vax Nigel ANDRE [facility] Payers Date Payer Category Payer Self-pay 1960 Unknown [id number] [id number] 1960 Unknown [id number] 2.16.84 [id number] 1960 Unknown [id number] 2.16.84 [id number] 1960 Unknown [id number] 2.16.84 [id number] 1960 Unknown [id number] 2.16.84 [id number] 1960 Unknown [id number] 2.16.8 [id number] 1960 Unknown [id number] 2.16.8 [id number] 1960 Unknown [id number] [id number] 1960 Unknown [id number] 1958 Unknown [id number] Unknown [id number] Social History Date Type Detail Facility [facility] if ever smoked [facility] Work Phone: Start: 1960 Sex Assigned At Male [facility] Start: 06-28-2022 Tobacco smoking status Never s moked tobacco (finding) [facility] Tobacco smoking status Never [facility] Sex Assigned At Male [facility] Functional Status Date Assessment Result Facility 06-28-2022 Functional Status N/A [facility] [place] Clinical Note 12-09-2022 Note Date & Type Note Facility 12-09-2022 Note Patient Education Ma terials Follows:Medicine Acute Bronchitis, Adult Acute bronchitis is when air tubes in the lungs (bronchi) suddenly get swollen. The condition can make it hard for you to breathe. In adults, acute bronchitis usually goes away within 2 weeks. A cough caused by bronchitis may last up to 3 weeks. Smoking, allergies, and asthma can make the condition worse. What are the causes? ? Germs that cause cold and flu (viruses). The most common cause of this condition is the virus that causes the common cold. ? Bacteria. ? Substances that bother (irritate) the lungs, including: ? Smoke from cigarettes and other types of tobacco. ? Dust and pollen. ? Fumes from chemicals, gases, or burned fuel. ? Indoor or outdoor air pollution. What increases the risk? ? A weak body's defense system. This is also called the immune system. ? Any condition that affects your lungs and breathing, such as asthma. What are the signs or symptoms? ? A cough. ? Coughing up clear, yellow, or green mucus. ? Making high-pitched whistling sounds when you breathe, most often when you breathe out (wheezing). ? Runny or stuffy nose. ? Having too much mucus in your lungs (chest congestion). ? Shortness of breath. ? Body aches. ? A sore throat. How is this treated? Acute bronchitis may go away over time without treatment. Your doctor may tell you to: ? Drink more fluids. This will help thin your mucus so it is easier to cough up. ? Use a device that gets medicine into your lungs (inhaler). ? Use a vaporizer or a humidifier. These are machines that add water to the air. This helps with coughing and poor breathing. ? Take a medicine that thins mucus and helps clear it from your lungs. ? Take a medicine that prevents or stops coughing. It is not common to take an antibiotic medicine for this condition. Follow these instructions at home: ? Take xxes-vjc-oqrudqm and prescription medicines only as told by your doctor. ? Use an inhaler, vaporizer, or humidifier as told by your doctor. ? Take two teaspoons (10 mL) of honey at bedtime. This helps lessen your coughing at night. ? Drink enough fluid to keep your pee (urine) pale yellow. ? Do not smoke or use any products that contain nicotine or tobacco. If you need help quitting, ask your doctor. ? Get a lot of rest. ? Return to your normal activities when your doctor says that it is safe. ? Keep all follow-up visits. How is this prevented? ? Wash your hands often with soap and water for at least 20 seconds. If you cannot use soap and water, use hand manager shipping. ? Avoid contact with people who have cold symptoms. ? Try not to touch your mouth, nose, or eyes with your hands. ? Avoid breathing in smoke or chemical fumes. ? Make sure to get the flu shot every year. Contact a doctor if: ? Your symptoms do not get better in 2 weeks. ? You have trouble coughing up the mucus. ? Your cough keeps you awake at night. ? You have a fever. Get help right away if: ? You cough up blood. ? You have chest pain. ? You have very bad shortness of breath. ? You faint or keep feeling like you are going to faint. ? You have a very bad headache. ? Your fever or chills get worse. These symptoms may be an emergency. Get help right away. Call your local emergency services (911 in the [place] ? Do not wait to see if the symptoms will go away. ? Do not drive yourself to the hospital. Summary ? Acute bronchitis is when air tubes in the lungs (bronchi) suddenly get swollen. In adults, acute bronchitis usually goes away within 2 weeks. ? Drink more fluids. This will help thin your mucus so it is easier to cough up. ? Take gdtr-acp-bzvdzuh and prescription medicines only as told by your doctor. ? Contact a doctor if your symptoms do not improve after 2 weeks of treatment. This information is not intended to replace advice given to you by your health care provider. Make sure you discuss any questions you have with your health care provider. Document Revised: 09/02/2021 Document Reviewed: 09/02/2021 [employer] Patient Education ? 2022 [employer]. [facility] Clinical Note 09-23-2022 Note Date & Type Note Facility 09-23-2022 Note Patient Education Ma terials Follows: Hypertension, Adult High blood pressure (hypertension) is when the force of blood pumping through the arteries is too strong. The arteries are the blood vessels that carry blood from the heart throughout the body. Hypertension forces the heart to work harder to pump blood and may cause arteries to become narrow or stiff. Untreated or uncontrolled hypertension can cause a heart attack, heart failure, a stroke, kidney disease, and other problems. A blood pressure reading consists of a higher number over a lower number. Ideally, your blood pressure should be below 120/80. The first ( top ) number is called the systolic pressure. It is a measure of the pressure in your arteries as your heart beats. The second ( bottom ) number is called the diastolic pressure. It is a measure of the pressure in your arteries as the heart relaxes. What are the causes? The exact cause of this condition is not known. There are some conditions that result in or are related to high blood pressure. What increases the risk? Some risk factors for high blood pressure are under your control. The following factors may make you more likely to develop this condition: ? Smoking. ? Having type 2 diabetes mellitus, high cholesterol, or both. ? Not getting enough exercise or physical activity. ? Being overweight. ? Having too much fat, sugar, calories, or salt (sodium) in your diet. ? Drinking too much alcohol. Some risk factors for high blood pressure may be difficult or impossible to change. Some of these factors include: ? Having chronic kidney disease. ? Having a family history of high blood pressure. ? Age. Risk increases with age. ? Race. You may be at higher risk if you are . ? Gender. Men are at higher risk than women before age 45. After age 65, women are at higher risk than men. ? Having obstructive sleep apnea. ? Stress. What are the signs or symptoms? High blood pressure may not cause symptoms. Very high blood pressure (hypertensive crisis) may cause: ? Headache. ? Anxiety. ? Shortness of breath. ? Nosebleed. ? Nausea and vomiting. ? Vision changes. ? Severe chest pain. ? Seizures. How is this diagnosed? This condition is diagnosed by measuring your blood pressure while you are seated, with your arm resting on a flat surface, your legs uncrossed, and your feet flat on the floor. The cuff of the blood pressure monitor will be placed directly against the skin of your upper arm at the level of your heart. It should be measured at least twice using the same arm. Certain conditions can cause a difference in blood pressure between your right and left arms. Certain factors can cause blood pressure readings to be lower or higher than normal for a short period of time: ? When your blood pressure is higher when you are in a health care provider's office than when you are at home, this is called white coat hypertension. Most people with this condition do not need medicines. ? When your blood pressure is higher at home than when you are in a health care provider's office, this is called masked hypertension. Most people with this condition may need medicines to control blood pressure. If you have a high blood pressure reading during one visit or you have normal blood pressure with other risk factors, you may be asked to: ? Return on a different day to have your blood pressure checked again. ? Monitor your blood pressure at home for 1 week or longer. If you are diagnosed with hypertension, you may have other blood or imaging tests to help your health care provider understand your overall risk for other conditions. How is this treated? This condition is treated by making healthy lifestyle changes, such as eating healthy foods, exercising more, and reducing your alcohol intake. Your health care provider may prescribe medicine if lifestyle changes are not enough to get your blood pressure under control, and if: ? Your systolic blood pressure is above 130. ? Your diastolic blood pressure is above 80. Your personal target blood pressure may vary depending on your medical conditions, your age, and other factors. Follow these instructions at home: Eating and drinking ? Eat a diet that is high in fiber and potassium, and low in sodium, added sugar, and fat. An example eating plan is called the DASH (Dietary Approaches to Stop Hypertension) diet. To eat this way: ? Eat plenty of fresh fruits and vegetables. Try to fill one half of your plate at each meal with fruits and vegetables. ? Eat whole grains, such as whole-wheat pasta, brown rice, or whole-grain bread. Fill about one fourth of your plate with whole grains. ? Eat or drink low-fat dairy products, such as skim milk or low-fat yogurt. ? Avoid fatty cuts of meat, processed or cured meats, and poultry with skin. Fill about one fourth of your plate with lean proteins, such as fish, chicken without skin, beans, e (more content not included)... [facility] Discharge instructions 06-28-2022 Note Date & Type Note Facility 06-28-2022 Hospital Discharg e instructions Patient Education 06/28/2022 08:22:46 Prostate Cancer Screening Prostate Cancer Screening The prostate is a walnut-sized gland that is located below the bladder and in front of the rectum in males. The function of the prostate (prostate gland) is to add fluid to semen during ejaculation. Prostate cancer is the second most common type of cancer in men. A screening test for cancer is a test that is done before cancer symptoms start. Screening can help to identify cancer at an early stage, when the cancer can be treated more easily. The recommended prostate cancer screening test is a blood test called the prostate-specific antigen (PSA) test. PSA is a protein that is made in the prostate. As you age, your prostate naturally produces more PSA. Abnormally high PSA levels may be caused by: Prostate cancer. An enlarged prostate that is not caused by cancer (benign prostatic hyperplasia, BPH). This condition is very common in older men. A prostate gland infection (prostatitis). Medicines to assist with hair growth, such as finasteride. Depending on the PSA results, you may need more tests, such as: A physical exam to check the size of your prostate gland. Blood and imaging tests. A procedure to remove tissue samples from your prostate gland for testing (biopsy). Who should have screening? Screening recommendations vary based on age. If you are younger than age 40, screening is not recommended. If you are age 40 54 and you have no risk factors, screening is not recommended. If you are younger than age 55, ask your health care provider if you need screening if you have one of these risk factors: ?Being of -[place]ese descent. ?Having a family history of prostate cancer. If you are age 55 69, talk with your health care provider about your need for screening and how often screening should be done. If you are older than age 70, screening is not recommended. This is because the risks that screening can cause are greater than the benefits that it may provide (risks outweigh the benefits). If you are at high risk for prostate cancer, your health care provider may recommend that you have screenings more often or start screening at a younger age. You may be at high risk if you: Are older than age 55. Are -Maltese. Have a father, brother, or uncle who has been diagnosed with prostate cancer. The risk may be higher if your family member's cancer occurred at an early age. What are the benefits of screening? There is a small chance that screening may lower your risk of dying from prostate cancer. The chance is small because prostate cancer is typically a slow-growing cancer, and most men with prostate cancer from a different cause. What are the risks of screening? The main risk of prostate cancer screening is diagnosing and treating prostate cancer that would never have caused any symptoms or problems (overdiagnosis and overtreatment). PSA screening cannot tell you if your PSA is high due to cancer or a different cause. A prostate biopsy is the only procedure to diagnose prostate cancer. Even the results of a biopsy may not tell you if your cancer needs to be treated. Slow-growing prostate cancer may not need any treatment other than monitoring, so diagnosing and treating it may cause unnecessary stress or other side effects. A prostate biopsy may also cause: Infection or fever. A false negative. This is a result that shows that you do not have prostate cancer when you actually do have prostate cancer. Questions to ask your health care provider When should I start prostate cancer screening? What is my risk for prostate cancer? How often do I need screening? What type of screening tests do I need? How do I get my test results? What do my results mean? Do I need treatment? Contact a health care provider if: You have difficulty urinating. You have pain when you urinate or ejaculate. You have blood in your urine or semen. You have pain in your back or in the area of your prostate. You have trouble getting or maintaining an erection (erectile dysfunction, ED). Summary Prostate cancer is a common type of cancer in men. The prostate (prostate gland) is located below the bladder and in front of the rectum. This gland adds fluid to semen during ejaculation. Prostate cancer screening may identify cancer at an early stage, when the cancer can be treated more easily. The prostate-specific antigen (PSA) test is the recommended screening test for prostate cancer. Discuss the risks and benefits of prostate cancer screening with your health care provider. If you are age 70 or older, screening is likely to lead to more risks than benefits (risks outweigh the benefits). This information is not intended to replace advice given to you by your health care provider. Make sure you discuss any questions you have with your health care provider. Document Released: 02/10/2018 Document Revised: 04/14/2018 Document Reviewed: 02/10/2018 [employer] Patient Education 2020 [employer]. Follow Up Care 06/01/2022 14:17:15 With:THAI REAGAN, Nigel Melgoza, URL Address: [facility] [address], [place] [address]- When: Unknown [facility] Evaluation + Plan note Note Date & Type Note Facility Evaluation + Plan note Future Appointments Appointment Date:07/01/2023 08:30:00 AM Scheduled Provider:Nigel ANDRE MD Location:[facility] Appointment Type:URO Office Visit Diagnostic Tests PendingPSA Free & Total 06/28/22 [facility] Evaluation note Note Date & Type Note Facility Evaluation note No assessment information availa [facility] Work Phone: Hospital course Narrative Note Date & Type Note Facility Hospital course Narrative No data available for this section [facility] Hospital Discharge instructions Note Date & Type Note Facility Hospital Discharge instructions No data available for this section [facility] Progress note Note Date & Type Note Facility Progress note No data available for this section [facility] Chief Complaint and Reason for Visit Chief Complaint r01.1 Advance Directives No Advanced Directives Records Found Advance Directive Response Recorded Date/ Time Advance Directives No May 25, 2022 2:16pm Summary Purpose Family History No Family History Records FoundNo Family History Records FoundNo Family History Records FoundNo Family History Records FoundNo Family History Records Found No data available for this section No Family History Records Found Additional Source Comments Care Teams (unrecognized sec tion and content) Team Status: Inactive Member Role Status Dates Lina Farris DO Primary Care Provider, Attending Provider Active Team Status: Active Member Role Status Dates Lina Farris DO Primary Care Provider Active Goals (unrecognized section and content) Goals may be documented in a n alternate section No data available for this section No data available for this section (unrecognized sect ion and content) No Status Records FoundNo Status Records FoundNo Status Records FoundNo Status Records FoundNo Status Records FoundNo Status Records Found INFORMATION SOURCE (unrecogn ized section and content) DATE CREATED AUTHOR 06/08/2022 [facility] DATE CREATED AUTHOR AUTHOR'S ORGANIZ ATION 06/19/2022 [facility] DATE CREATED AUTHOR AUTHOR'S ORGANIZ ATION 09/29/2022 [facility]ital DATE CREATED AUTHOR AUTHOR'S ORGANIZ ATION 12/17/2022 [facility] DATE CREATED AUTHOR AUTHOR'S ORGANIZ ATION 05/07/2023 [facility] EPIC DATE CREATED AUTHOR AUTHOR'S ORGANIZ ATION 10/19/2023 [facility] FOR RECORDS PERTAINING TO PATIENTS WHO ARE OR HAVE BEEN ENROLLED IN A CHEMICAL DEPENDENCY/SUBSTANCEABUSE PROGRAM, SOME INFORMATION MAY BE OMITTED. This clinical summary was aggregated from multiple sources. Caution should be exercised in using it in the provision of clinical care. This summary normalizes information from multiple sources, and as a consequence, information in this document may materially change the coding, format and clinical context of patient data. In addition, data may be omitted in some cases. CLINICAL DECISIONS SHOULD BE BASED ON THE PRIMARY CLINICAL RECORDS. [employer] provides no warranty or guarantee of the accuracy or completeness of information in this document.
[2023-10-29 04:08] LABS: PSA, Free 0.46 ng/mL; Prostate Specific Ag 0.9 ng/mL (0.0-4.0)
== END 2023-10-28 09:46 | disposition home or self-care (01) ==
LOC: LAB 09:48
PROVIDERS: PCP Family Medicine; Visit Provider Urology
DX: R97.20 Elevated prostate specific antigen [PSA] (principal)
CPT/HCPCS: 36415; 84153; 84154

== ENCOUNTER 2023-10-28 09:50 | Outpatient (OUT) | payer BC, SELFPAY ==
--- OUTSIDE RECORDS SUMMARY | 2023-10-28 10:11 | XMS_ITS | CCD ---
Author Organization [facility] Care Team Providers Care Business Office Specialist Name Role Phone Brenton, DO Lina Primary Care Provider Petznick, DO Lina Attending Provider Petznick, Lina Attending Unavailable Petznick, Lina Primary Care Unavailable Petznick, Lina Admitting Unavailable PETZNICK, LINA Primary Care Physician [phone] PETZNICK, LINA Admitting Unavailable PETZNICK, LINA Attending [...] Drug Allergy Anaphylaxis (disorder) [facility] (1 source) Penicillins Drug allergy (disorder) 4 [facility] Repository Medications Current Medications Medication Drug Class(es) [...] Daily, # 3 tab(s), Refills(s) 0, Pharmacy: [facility]/pharmacy #[id number], 168, cm, 06/28/22 13:27:00 EST, Height/Length [...] 05-31-2022 Episodic Other aftercare (1 source) Other general surgeon (current) drug therapy; Translations: [OTH HALFWAY CURRENT DRUG THERAPY] Onset: 09-28-2022 Episodic Other [...] Facility Patient Letter FTon 2023 Patient Letter [facility] October 18, 2023 JOHANN WONG [address] [place] [id number] : 1960 Dear Mr. Johann Wong, [facility] has been trying to reach you concerning having a repeat PSA level done due to an elevated PSA. We certainly understand not having insurance, but the hospitals offer a shafer PSA quach which is affordable for most patients. This test can also be completed in our office, and sent to [employer]. It is very important you comply with having this PSA level rechecked, as an elevated PSA can be an indicator of infection or possibly prostate cancer. Thank you for your cooperation in this matter. Sincerely, [facility] at [facility] [place]anna [place] [address] , option #3 Normal [facility] Coding Summaryon 12-16-2022 Coding Summary HTMLBase 64 XcszrovlWKn3sBy+PGhl YWQ+DF9NWQQzP74knUCs aS0sJ6VTUUaPCpwzOGLT ALaLFzOpxvGnWF8ljBXu ZXJu IC8+GP5fNHAqIemrxWXa e2W1pJN1Z24uow1mGMkf iOF4WEFwTuVershdv4kv tXy0VTsaDoozOeSv VSHokZ95JRC4nD27Bq27 cNBysBGcj1hbyVs1TeSk ZZEcNBR8lPlxQWqkb9Fv TLHvR18qqMGrj4M8 IGNvbGxhcHNlOyBlbXB0 hA9cIPexmtiqv7btlblc Mgf0dg50iNNef8E3jGT9 K4MkdsO2NRTgwGIt CmwegOOGkF9jrmhlm2nu kmzgLxXsFPVjIRf9GWt3 OZSuoJffWfFhEN65MWH5 IEFjizEgD5ImGCEf qFvmDdK9p1M6Pn3VP5OD YpwpD3DVROGDDMohfLS+ NM82cf93Z5QoAtacWsp3 XYHpTDU4vRJ6oV8y LCPeQHfzc8A2oTH9Y3Cp svUhll8iv2lpZXTgTHrc W11fhNVmi5U0GZDcvUK3 EJZbmMmmFyDhvH31 Oyc+XCSxqTtur2NsIwzz m6vbl3lsjVi4ZbptRVRg vqOozGeeMKW4u5ElPr5b SCUazRL4jDI6lS1h QqWcHtN8WWiiJ576SmPc cIWaVadrM64jR8SojER+ TSSzLku7RIWjpEioVX3j Z6JaSBEwdcgfgZHj jAwlDS2zZDZnmhrhRBHg vK6yHQZkB9v9XtSpDrH5 ANwyA7GwIUMeinrhJs01 lL4zDdKnAuP9XNzw P6EqlhR8FBRqvYIrAAgp AMU8Q95ke7X6TQVtEMKm MNE1aFZ3lW7oeGxgeemf bGVmdDsgdmVydGlj VCiuNHlzN373EOWnjMgv PkNvZGluZyBEYXRlOiAg MDgvMDMvMjAyMzwvdGQ+ AESjHQY7uWccHFZk ySAjXMmkNb4qcNffvQke LL6xFSNgnxmxEBLfyB0n MFWjvYMlmSysTQ6kKFXh brccw901HtWkDFT9 FHCnlZHyM3VagO9lUyDi EAEpSURiM2OhkTNqBGan T030GBttGjE9ELVkhvId O0DcOTEnyDwtBiG4 p0N3Av8Qs9RhasmwO1Nt vGObXvFdKcjeFNz2A9Yd PjwvdHI+PE54IWWxJS58 UDl4NAG0gIqgDCru YRXbC3AbzF9dBiPfGEEd ZGRkOyc+PHRhYmxlIHdp ZHRoPScxMDAlJyBzdHls SL2gFr8lUVHtYLAa rFqdqRIiDeOel3omOKPk DVmuKW1dbVvmU4NcxHT0 QKGsw7d4Zj22H85rY4Ky dXA+VIFqcRR2cOI8 vH2wYhNmGlN1RUanT295 RwVujVCuMbaek9lle3hl tEv6RhP6KSXjanVozTpx NRE2m2ZlPa91I11k IHdpZHRoPSIxNSUiIHZh gTjmns4woJ0mEp5+PGNv fMY5wLM5rP8fBsAdTzZ0 XXlhZ866QzFarNKl Ivtme3jbm2igxIt0WyOx CKDpurXgbFgaTFY8v3Zs Gu16K7NqcNumu6RsMza7 nj89kRUcj4D0aWB3 T3LvQRInzwikiZGkdFzq QG1oOJRxrqfwIYBvyH1s PRHoR4d6RqWwZbB8FLqc P7HxcrM1PEClzNEq LSFqhXPApX4nubtfm7vd xlndKtJxALKtPYs5YLo2 PIOykFueNnDfWDX2WkD8 AJS7yLOtbL5vuMjx ivlesX3tAbx+BUM7wOUd lDURWR7vBcgunDO+PHRk OTL5pStgJZsvYQXnyZ8q NQXxR0i5VgAwFhA1 QFmzW1EvvtF4UAKjrUPt HAXqwFYFcB4iadcqz6pf cpmfKeVyIHMfJXr8SZj9 LWFsaWduOiBsZWZ0 ZaT4OLV8iQBpmP8fqCgm gxvxqA1pZtr+QmlydGgg UOM2HFw9N8JpMop3VFGb nQihTZ9zhAQkOMok Mt4ttJeqeBncXB8yWUMd nuccm487ZlAbv9nuMJGd kHXcVAqoTXD0K74th6E8 CDCkPZIdBMJ9yQQ2 oQ7baSwtkzbdnXPepMnu vxGdbZfuLRkhYNqrP841 DCXyyIgqZoTbFZc2P2Dw Ket7JAHxzDkwZK6c hWGxFCroXr1krRxsoTui NH2pSCAumfsyd490KaTh n3haTDWdeHQeWHohZLP4 I33cd3J9HETzMJZi XUM4dXE4rG3ykAtcvyaw bGVmdDsgdmVydGljYWwt DYuhO207FNXmuFasUkGs pDh4S4KzSyb8IRDd iBigXF4ihFToLXmaWi0i nIsxnOdsUR2cZCAaszkd v009WtXoq9abGPEkaPXx BCbyXPZ5I24rh3J8 KOIfFUNuIYZ1hLK5gY3j bGlnbjogbGVmdDsgdmVy aSqcADabHOqyJ036QNIn cDsnPlBhdGllbnQg KHhdIQp2D6FcJwlytXD+ TA49AXWlDY45jIBywVFz n3kcsBs0EhVgCPKtIWW8 zHomRJwxn7ScYMYr T08pqRTbb0G2RRPhaAyi rVMeMxJyrXY7pY8lIFgh hcveh8kasqxhQwwfr0mu bn81oY67H43eSPwr ZHRoPSIzMCUiIHZhbGln oj3qgT4iEf9+PGNvbCB3 aDF6jM5lCDMbMsQ2WUyq R855LeCqdKQzDzwk v5qwl9zbwDb7XaP8IKSh jhGjlBrzLUO3t2TuWa76 Q38sSDrrAVXvHMHnMFRx DBGbhZzkfi2hrN6n Ii8+FOFftHV9lGF2pZ3a YpZiOkD6PJizR310CcNf xHApQruuP38vE4WtuAI+ YNZxUst0SZHtjOxw IE6yxVQwHNlhIq4oKKG2 NoRlYiNuBTwnK0OeGZAz eleqyrhvwDU5WMObGBAc rP70Jk8nnWieAOEa dQSHcJ9igzihn3urkgbq LoVgFJVeYOr0XAx8WITs dRfqVoVlBUS2EsX7QXE3 dRWpeB3fjWfqvupr gO7cQ5HrLQSijrrrJt28 mF9nEbAgRaZ3WYibDwk+ VkFORFlLRSwgREFOSUVM MGuKR5TBKAecdIE+ IFFbALV5yUedLCseYSIj jC0tYFCxZ0p7SnDfTwT7 RBzgR3MdSKMnrdfgNm22 rG2lKeOlBiN3XIvj W8PrehF8OHXgvVOjORjc NRW6R35qe2N1JMXwCRHr OZE9yOQ4yJ5hnXjtzghv bGVmdDsgdmVydGlj ZRfoBSzuN885VPSbvDny QsYuRfOrQfV1HgW2X5Zx Ycg7CIDyjUdsYS4rhOGt IYwgCi5kyCbnyPzs FG7vJSAxpfpiETJyyA0z OTJnmBXdoVwoNP2fJSTf egyvg551CtOaMSS8SENo aJSuA1NpwZ6fPpDl ZOQmASYuI7OifOBuYBdz R244BIfrMlE9TTHghaVd S4KdPCVxiWtcRbJ8u7D5 Bd84PNSMTRWezdxq dGQ+BYSuACY3rVxgHLop MMRsjE0eBGDoU2y3TcTx UdH7MWkeM0QhCPIkdddk Gz92dX9pHjArVbG7 OIelU0DwhvP3FVUayKRp KLlhVRA3Z24ao5T7PURu NMAvBCW4dPW1fD2lbDhk bjogbGVmdDsgdmVy dTdmRRbdOXsyC223YZFz zKceLe5RIST1R3BjPij0 AOPkcZzvVR4ndXQdSBbp Jc0tbCkehLesOM6z DFJcsngjMITifD8vZVAs qJPayYquJM1qOFImmfbn n131IkFmRET0JVQcpGJc P0AakR5fYzOdSHEe DZQvT3HveJFkXJmnK945 QUsmWtA6KDUmszUlT9Ju AZAjxUipFpJ9t2D0Tq9O UDwvdGQ+QR87ud12 R4SgMpvlKin4OOSqCED9 fFG2yJ5oCFEgRUxld6E4 rHG1K6ZezgVbuj6zg4jy CTRpZHvsK27xrQMh l4A1UGHrwVR2NPNppDma TlXygM62Dtj+PGNvbGdy v4BxXgtuv0gyp3xbpYu4 IjMwJSIgdmFsaWdu OXF9y5KeDr41F89tIZva ZHRoPSIzMCUiIHZhbGln oj9viC8mVt6+PGNvbCB3 yPI5dZ6xLdMiGkR3 OMeoI727YuPmwMKhNwxr m1dev6cgmQp3PiOvRVYr gmLjdAyjXRJ9i6DdPm97 Q5QmfIpna4PyGmk0 ax40xLQxv2K9yIG2U4Oi CCRhrpoixFDuqKjiEP3j RWJelxvfDIUkjM3hASWj G9q1NrXnAnN7ZDxq S6FdarC2UWNeaFZeXEMd qKDAnF3aotcow9vqthis SfXpUUVvQXa8SOv5IUQk jOslAgTdSEP8PdG1 POF9nNQvrH6emNhzvabi gV5pNdt+JMo4c5uknAWb JI4txYE2ML54TU93cKIy b2C7zVN7T2EkREHf zmqfrirmzSF2NZQnEVFq aO33Mz8gjSswIa6sEHHn VBA1KKLayWNyM7NehE8m IqGgERUxKUYcS3Qr sGTqZQhbL683MTauXtB2 ZUBahrUwK6AcYQVmhLpj IxD3z9J7Vv6EGV17EM44 RB76eCTpq3M3fDY7 Y5YjQYJawgjudujntCB5 FZMfMHFjqQ66Bj8wbDnz Hk8tQNAyESG2WWBmbSQu H6LocF8zDzBbMIWw WSXmO5EqmNKoNYheX840 RGxbKgS2FNXfodLeK0Gu OHSmqGoxRdC9e7M2Go3F Ke37WU84IL90oWAk z2B2wOH4T1RkEWXsrekx tnylhCR9NIQnQYAgfJ50 Fz1tsJgwQw5nFNQdASM2 QOVdbXUmQ9BujS4m RbWbYXWdZAJgO4SyxAWl YLtcN242DKhiAgF0ZKTa kmPvA5FeEEVnpBzxRgV2 r9K6Gc1LTEnjjeo7 A5YqRixsaUB+EC75DVUu GT67iHXriPMwb1lfxWq9 WlKoMCWbWCI7oSneWAfc b7GhVXQuB45ziTAg c2U (more content not included)... [facility] ED Clinical Summaryon 2022 ED Clinical Summary [facility] ? [facility] Care [address] [place] [id number] Clinical Summary PERSON INFORMATION Name: JOHANN WONG Age: 62 Years Sex: MALE : 1960 MRN: Acct#: Visit Reason: Cough; COUGH Arrival: 12/09/2022 10:21:22 Discharge: 12/09/2022 11:00:00 LOS: 000 00:39 Check In: 12/09/2022 10:21:22 Checkout: 12/09/2022 11:00:00 Address: [address] [place] [id number] PCP: LINA FARRIS PROVIDER INFORMATION Provider Role Assigned Unassigned Chavez Cao-Brijesh ED PA 12/09/2022 10:24:23 Kenia Gaffney RN NEW GRAD Nurse 12/09/2022 10:41:24 VITALS INFORMATION Vital Sign Triage Latest Temperature Tympanic Temperature Temporal Artery Pulse Rate O2 Sat 93 % 93 % Respiratory Rate Blood Pressure /70 mmHg /70 mmHg MEDICAL INFORMATION Medications Given: Allergy Information: penicillin PHYSICIAN DOCUMENTATION DISCHARGE INFORMATION: Discharge Disposition: Home Discharge Location: Home PATIENT EDUCATION INFORMATION Instructions: Acute Bronchitis, Adult, Rfex-tn-[id number] Follow-Up: With: Address: When: LINA FARRIS [address] [place], [place] [phone] Business (1) Within 5 to 7 days DIAGNOSIS: Bronchitis Patient Understands: Yes - Patient/family/careg iver verbalizes understanding of instructions given Comment: [facility] ED Patient Summaryon 023 ED Patient Summary [facility] ? Urgent Care [address] [place] [address] PATIENT DISCHARGE INSTRUCTIONS Patient Information Name: JOHANN WONG Age: 62 Years Date of : 1960 Reason For Visit: Cough; COUGH Arrival Time: 12/09/2022 10:21:22 Primary Care Physician: LINA FARRIS Attending Physician: Chavez Cao PA-C Comment: Patient Education With: Address: When: LINA BRENTON [address] [place], [place] [phone] Xcedex (1) Within 5 to 7 days Acute [...] Follow these instructions at home: ? Take syhj-asw-msntpgz and prescription medicines only as told by [...] cannot use soap and water, use hand blade bender furnace tender. ? Avoid contact with people who have [...] is easier to cough up. ? Take wvtt-vgu-eepmcyh and prescription medicines only as told by your doctor. ? Contact a doctor if your symptoms do not improve after 2 weeks of treatment. This information is not intended to replace advice given to you by your health care provider. Make sure you discuss any questions you have with your health care provider. Document Revised: 09/02/2021 Document Reviewed: 09/02/2021 [employer] Patient Education ? 2022 [employer]. Medication Information: The exam and treatment you received today in the [facility] Emergency Department were for an urgent problem and are not intended as complete care. It is important for you to follow up with a d (more content not included)... Normal [facility] Note- Provideron 12-09-2022 Urgent [...] as needed. Impression and Plan Diagnosis Bronchitis ([id number] J40, Discharge, Medical) Plan Condition: Stable. Disposition: [...] 90 mcg/inh (more content not included)... Normal [facility] Recordon 023 Urgent Care Record [facility] ? Urgent Care [address] [place], [place] [id number] PATIENT DISCHARGE INSTRUCTIONS Patient Information Name: JOHANN WONG Age: 62 Years Date of : 1960 Reason For Visit: Cough; COUGH Arrival Time: 12/09/2022 10:21:22 Primary Care Physician: LIAN FARRIS Attending Physician: Chavez Cao PA-C Comment: Visit Diagnosis: Diagnoses This Visit Bronchitis (J40) Cough ([id number]) If you received any narcotics, sedation, or [...] Address: When: LINA FARRIS [address] [place], [place] [phone] Business (1) Within 5 to 7 days Medication Information: The exam and treatment you received today in the [facility] Care were for an urgent problem and are not intended as complete care. It is important for you to follow up with a doctor, nurse practitioner, or physician?s assistant professor of sociology for ongoing care. If your symptoms become [...] so we can reach you if necessary. [facility] has provided you with a complete list of medications post discharge. Please inform your chemistry tutor/provider of your visit and for further instruction on these medications. Any specific questions regarding your chronic medications and dosages should be discussed with your primary care physician(s) and/or pharmacist. New Medications [facility]/pharmacy #[id number], [address], [place] [phone], [phone] albuterol (Ventolin HFA 90 mcg/inh inhalation aerosol) [...] system. This (more content not included)... Normal [facility] Coding Summaryon 09-30-2022 Coding Summary HTMLBase 64 OdcojbsaJVf9nRx+PGhl YWQ+ON5LADSdP87tqQUg sL3MQ4bAGA4ULQYYDQDE RC4XOI0rmKV3HDykY1Md biAv VgeorEByZL60QWw3TJX6 wMteQDdowE9eeTGhI6o4 DcPlYO33pI30GYadPXBf VcP5QxAcsxpakFBy O3lzDnFrlNNsAbi+PHRh YmxlIHdpZHRoPScxMDAl ExMxjPhbTW3gLt6zHPYd LWNvbGxhcHNlOiBj a1lhURAmZVxqRQ4nfBfg I1XjcSH1XGSks0k5Cm87 dHI+DVVtLBO3bTcaPHfu w011HqNmj7qvSMB3 fXMtAFqeSCM3Y42cl9Z3 VCPxCTOeWXG0xHG0vI2f iUvcjykwU5ZivBOyBeG9 ZLB3oSLxgK3eiTak xkiqvB5zZxp+A29GYZ1A PHVNSJ0WYyu0Y9HfUnnq dHI+CI90NVOpQV77rZSd cPRrm8xlzMv1ZeNx QKMwFKR7wXzyHHqzj6Tr IPHjZ40ukNXbi7S0BPSk cDlexIBmJiPeuQI4iF1j EKknuphfm1ptoipm Djwzt8azcb86dI43M26u THttSFHzQYR0CSLaZBLj wKzwgy0yaR8yPs9+IDxj z0nua6patHo6OyWe ZQNcvnDuvTclUSJ9y0Hc Zt31M2KhtKwsv5WhUcb4 ts23rAIxi7L2vHJ4BGdh GVJmzG8zZLctShF9 UBWsMaIvrI28mQHqULpu Ig0uyCotoJqgWK0bYWQr ijotYPQxfP9aXSWhgHGd nUpiDU7qWIGufyzf i744SjJyVZY6IAKaaUAc E9MpcZ2cOeVeHEWzQGZg H8YfgESqNJdpC678BMac VaP4MNMghhBeW6Te PXDdgVyoZqM6c0B3Pb2K m2DmwzslYPP3IUvmCXE1 VkB1XpWwGxF7O2YrIyv1 WIBadHoeJR8yZ7Im HLVogbczdpjlyUT9HQKh TEVdoF21mBSiNFjvVc2y q9O3y671GSCwTARrzL91 Ac2zuFmxEOAbtUHK rV7yvtikv0ywiyntBuQq TNObUJy6QTs1FCIzeSnt MmWkMXQ9PlV0KMQ2aTZg pB4xoFikibyjfB0i Oyc+D69riH0iCUJ0YOE2 odjmORTrwgTgZK91OE29 M8UnVnjpcYDnpRW+PGRp tjNynEdcGL1xOoYr d9dyu5WnMVetA7KmZUTw STvjEtv1FNLpYTF9hIM9 vQ5dIDTgXIfdx5Z3hPN4 H0KzhpApzk2py5nr IPMsPXdvM43olHWwk8S3 DHEfyYX4MUGmmUqjZaIq rI41Kex+BCBxaHcrv7Yb Encsm9bzg8pgcVa1 IjMwJSIgdmFsaWduPSJ0 j7YgXz33C47aVZkaMLOz OQXpAKLzZRLpwFthya3o wT5wQl4+PGNvbCB3 xHZ5yC0gGZZjIiF3JYex Q746AzFnjJUuBewdv3pa w3sewZr8BzNrECSltfWd tKrvIKW2o5RhQc92 E93ySCcuMFYkJZScUPBv PCDlgSktjo1hhR8jIr0+ FW6eg1xyys62zN60kGA+ YDVwXHV2cBbtAZpp GZTomH3dLMesAxK2XYPv DvQrgV54oYMjFMkhVq7s gZkhoAowOP5fLGIvuzuo i645HwBzn6dlNPPq iKDzXQgxHGH3Q54ta0E5 TZTsLOYpSUF0vOR0oI0o bGlnbjogbGVmdDsgdmVy lOfvXJdbBStqP920 IHRvcDsnPlBhdGllbnQg KlTsUAl2T3MlGfj8FOPz mNipOH8znRKrCEauDx6a uVtcyUkdHN0iIIAy mmlsh089EoCzs3sgPKCk pVGxQWhwTPN5Z78qt2L8 CMVkZPLsGOR9sPW8qY4q bGlnbjogbGVmdDsg trQhrIsuPYxhCZuvS082 IHRvcDsnPkJpcnRoIERh oNP1PJ20GR00vMNgt7V4 cJK6G3DhUQUymnlc ydngjAB7RQPqWCLcgN91 Ho5vcHakMe7zVUUmVHU3 ALPsjIKtG2CaaL0jGcQa CRAwHLOnM9ByiHYb QKxkD290YLdeGdA7GDTf pmTkH8GqCHHogOigGvN2 o1Z4Kh7HV6C8RO75CB33 tQCpt6T9tBO2E5Hq UEBnpnktarjwkWQ9SEMm HPFszQ92Jr0npMuvLj4g ZUThCDM5XLUwhWYbL6Mh pX7nRjHbTXOyHHSd W1ZfeJXmGMwtS272MLzq MvM6QEAtxcYeY9UuWQKo wOonSuL0r7N4Pl9FIZg5 FR78PV11lTSmd1P4 hQC1P2AqBKOihuphtthz xCJ6BJVdPLBklY18Rl5s vWkuNz5xNZZeZXK6OPJo zAIcO9CwrS0eJdUc XVYgGYUzZ3ZwdJVlAKdw M327ZXigYsV2ADFsapUt L9EvDPFmvCqlSmH0e0U3 Hn9JQWDaOC29DAK6 qGM6TW36TY20L4RpAazx dGFibGU+PHRhYmxlIHdp ZHRoPScxMDAlJyBzdHls RV4bMb3rBZQyEQRs pYbkgRMfNdVwf8kfBDFe QDcvZX5iaIwfB0GbnTO6 OGNrr1r1Ui50H57tA8Im dXA+DEVfyQW5nKI6 lX1oKdEdArR8HTeyW901 YaOfbHOmNgtdx7zor4hd jAb1CdZ6WUXhhqMmxCnd MLA7e5SmQi91U18e IHdpZHRoPSIxNSUiIHZh rNwudn0jcR9dCy9+PGNv cIY2pBR1iT2qGvPaJcV5 KKxmY353EcWhnTZk Xmjif8yqe0ynzVu7KdUh PTZxtbGadLtlNYT5e8Ak Jw36A9TvvCvkb4FaJdn9 fa29zKSxc5D7cTQ2 Z7ThHZVppwlwaENxaEsb BR9lKSMwfklwLNIoqU6w UNZbL4g4UkYsPjW7PPxi F4AccgD8SXYqnCTl JYfjENZ6X61kt1U8TIYk MNVsSZM3tPH3pR2oqKpw bjogbGVmdDsgdmVydGlj TDqeSKacL050TUUh oRkoYKUqgQ3nXJSuiIGq vVxnZS6pLFKuvqgpMdTP TiPPZ8XeHISGAsuNZPTG J9PYMHb8L7RqRov3 PIJxsXfrLD9txIDyDFww Pz2onBqrkIknXA5kWKQj mxzsFSHspV3jIVFvmHHs bAsgXO6yLSVxelnr p158MfRyFAP5IPPwxVDn F7WibY8sIhLeLKJrXMMg S2VumEYuKFduJ136EVnj GwP8DZRacjVnG9Qf EPLsiRiyTvV5r0T8Xe1x Np4tVm9oLVGeAE64YR64 mUJth3R0kVA4U6WgTTYc guiihgnnnEY8NPKy YWMzxR48xIIcXMzwIp1g w7W2l467XLTlLWSzrL38 Vv1zbFxdDZUljLTTpI4x votna8caiebhIeOv IRYmHEz2HNs1XWIwdTuh IhDvXEL9EkK1TVM5mAPa qR8mcRtnlzzyfK9vAey+ DsKoFTNddiT9V9Sd Hxg4WYAthMzsTL4xsBYu PQzaGf7oqAdhpPfnMV1a CSKtzcmlOASinT8pFCKg nZVkuEnfDC7qTIVu epqzl294WzQsYRZ9WZRh wIMoZ3MrzF5tGrKpLQFw LPTbZ0VdzREtHTxdB744 AAerDaH4TCFzrgZr L1WjWKNyfXipUnD9o1F1 Gx6WHBzNUW09ES11oVQe l0L3vKO2Y3CwHCFoatlb eqzurDJ8TUXzMBMk lK17vLZtLAwxNs6nz5B6 i586AWAuJFWcvJ55Ef7r fBzzUDOshOFMmB3fplis g6ydklihGqXgYOEi AJc5QVg0BAVnlDqqLqIt KIT3JwA5UBU7lMOqvC8t oMesifrpbO1oUgb+T1A8 V7PdVjunhKU+PC90 KOTdOT57gOObjQTzw9su nQl0DfJwXHRuGMU8yXnt KHjcl9LrOVNeV91bcHVr a7Y8APDexXpqiAWb TzJihRE1iI5bYXwbzjel v2wektkiYyush8qhkf44 sH04T91gFQpzNXTfXQQf VAAdWKLsuDgjlc7l rF3qOp0+XFFnpKI7fSO4 dP8vDsBbNfN7BKhbP199 VePhnCTnIsmwk1mtr1uv eGs4CoMeVKJdskAn qNbpQZY9p0UzGf96L85y IHdpZHRoPSIyMCUiIHZh fPibda5kqN8gFv6+PC9j f9cmzh87bO88hLD+ ZYAiYIM8iHvkAFcnRFFv mX1kXDyaIbZ3YTWyQvJi gH21yDNjUVxzYp1kmMeq pQspZJ6tHGGpsajv x986UzMkq4tuJUYhrBSe WOooENK1D13dy1X2CJWi XMRcFZD3kVS3rM6zvPck bjogbGVmdDsgdmVy rAekISkvIOqjQ428LAUa jHneGjYziMNlZ2rjdgNA XM2oQdwzdRT+PHRkIHN0 gRyqZNmpJDTznZ3w WZQpV0n8VzIvYmA4ZEmq S3WgrtC6WEFwsITcWVIq rHBOdS3wfwkmg4jgdhjw XjNjOXApLYb7UMu5 PEAzcLhzUzUuYRX9TyM1 CVR0fHTerV3oiPccfgwj yC8eWcx+RklOOjwvdGQ+ CSGfJZW5aPleLLid LXLatR9sTFUyO9y3CiCk UlB5NHciW0JmwqO7WGFs gLXtTAAqbOWMbD2alotd a3xmwqboFaNwNXSz XTz0XWy6HSWgsXoiKeZk XEU9UaP9SOQ8aMCaxS0i bMipmjpcrP3dDfj+TVJO OjwvdGQ+PHRkIHN0 xZqmJXopJFZebB3hTTUe J5g9UlHfCqZ4IIlcJ7Kd vgK4PRCfnQCvOUWpeDSD vG9yxtybm4hqrvum BpOzSNQnMFf1RPf0AQNl mJmyZfKoPZY7FxH1LYW5 uPYqoT4hcDlwlwfllI3e Oyc+GOB4ZVJ8GB72 UD73S7GiIivrjLOrsHZ+ PHRhYmxlIHdpZHRoPScx YJPeUcRdcNybEW4hFb1d ZGVyLWNvbGxhcHNl OiB (more content not included)... Normal [facility] C Throaton 09-25-2022 C Throat Ordered by Discern. Normal throat dereje isolated No pathogens isolated Normal [facility] Comment on above: Performed By: #### [id number] ####[facility] (DEFAULT)[address] [place] [address] BNPon 09-24-2022 Natriuretic peptide B (Bld) [Mass/Vol] 243.0 pg/mL Normal <=900.[address] [facility] Comment on above: Performed By: #### T SH, CMP, LIPID #### [facility] [address] [place] [address] Dr. Isiah Donohue CBC AUTO DIFFon 09-24-2022 BASO # 0.0 103/ul Normal 0.0-0.[address] [facility] Comment on above: Performed By: #### T SH, CMP, LIPID #### [facility] [address] [place] [address] Dr. Isiah Donohue Basophils/100 WBC (Bld) 0.3 % Normal 0.2-2.[address] [facility] Comment on above: Performed By: #### T SH, CMP, LIPID #### [facility] [address] [place] [address] Dr. Isiah Donohue EO # 0.0 103/ul Normal 0.0-0.7 [facility] Comment on above: Performed By: #### T SH, CMP, LIPID #### [facility] [address] [place] [address] Dr. Isiah Donohue Eosinophils/100 WBC (Bld) 0.5 % Critically low 0.9-7.[address] [facility] Comment on above: Performed By: #### T SH, CMP, LIPID #### [facility] [address] [place], [place] [id number] Dr. Isiah Donohue Erythrocyte distribution width (RBC) [Ratio] 13.0 % Normal 11.0-15.[address] [facility] Comment on above: Performed By: #### T SH, CMP, LIPID #### [facility] [address] [place] [address] Dr. Isiah Donohue Hematocrit (Bld) [Volume fraction] 40.4 % Critically low 42.0-54.0 [facility] Comment on above: Performed By: #### T SH, CMP, LIPID #### [facility] [address] [place] [address] Dr. Isiah Donohue Hemoglobin (Bld) [Mass/Vol] 13.2 g/dL Critically low 14.0-18.[address] [facility] Comment on above: Performed By: #### T SH, CMP, LIPID #### [facility] [address] [place] [address] Dr. Isiah Donohue IG # 0.02 10e3/ul Normal 0.00-0.03 [facility] Comment on above: Performed By: #### T SH, CMP, LIPID #### [facility] [address] [place] [address] Dr. Isiah Donohue IG % 0.3 % Normal 0.0-0.[address] [facility] Comment on above: Performed By: #### T SH, CMP, LIPID #### [facility] [address] [place] [address] Dr. Isiah Donohue LYMPH # 0.6 103/ul Critically low 1.2-3.8 [facility] Comment on above: Performed By: #### T SH, CMP, LIPID #### [facility] [address] [place] [address] Dr. Isiah Donohue Lymphocytes/100 WBC (Bld) 10.2 % Critically low 20.5-60.[address] [facility] Comment on above: Performed By: #### T SH, CMP, LIPID #### [facility] [address] [place] [address] Dr. Isiah Donohue MANUAL DIFF REQ NO Normal [facility] Comment on above: Performed By: #### T SH, CMP, LIPID #### [facility] [address] [place] [address] Dr. Isiah Donohue MCH (RBC) [Entitic mass] 29.1 pg Normal 25.9-34.[address] [facility] Comment on above: Performed By: #### T SH, CMP, LIPID #### [facility] [address] [place] [address] Dr. Isiah Donohue MCHC (RBC) [Mass/Vol] 32.7 g/dL Normal 29.9-35.2 [facility] Comment on above: Performed By: #### T SH, CMP, LIPID #### [facility] [address] [place] [address] Dr. Isiah Donohue MCV (RBC) [Entitic vol] 89.0 fL Normal 80.0-94.[address] [facility] Comment on above: Performed By: #### T SH, CMP, LIPID #### [facility] [address] [place] [address] Dr. Isiah Donohue MONO # 0.6 103/ul Normal 0.3-0.[address] [facility] Comment on above: Performed By: #### T SH, CMP, LIPID #### [facility] [address] [place] [address] Dr. Isiah Donohue Monocytes/100 WBC (Bld) 10.2 % Normal 1.7-12.[address] [facility] Comment on above: Performed By: #### T SH, CMP, LIPID #### [facility] [address] [place] [address] Dr. Isiah Donohue NEUT # 4.9 103/ul Normal 1.4-6.5 [facility] Comment on above: Performed By: #### T SH, CMP, LIPID #### [facility] [address] [place] [address] Dr. Isiah Donohue Neutrophils/100 WBC (Bld) 78.5 % Critically high 43.0-75.[address] [facility] Comment on above: Performed By: #### T SH, CMP, LIPID #### [facility] [address] [place] [address] Dr. Isiah Donohue Platelet mean volume (Bld) [Entitic vol] 9.8 fL Normal 9.5-13.[address] [facility] Comment on above: Performed By: #### T NGUYỄN KOROMA, LIPID #### [facility] [address] [place] [address] Dr. Isiah Donohue PLT 179 103/ul Normal 150-450 [facility] Comment on above: Performed By: #### T NGUYỄN KOROMA, LIPID #### [facility] [address] [address] [address] Isiah Donohue RBC 4.54 106/ul Critically low 4.70-6.10 [facility] Comment on above: Performed By: #### T NGUYỄN KOROMA, LIPID #### [facility] [address] [address] [address] Isiah Donohue WBC 6.3 103/ul Normal 4.0-11.[address] [facility] Comment on above: Performed By: #### T NGUYỄN KOROMA, LIPID #### [facility] [address] [address] [address] Isiah Donohue CULTURE BLOODon 09-24-2022 Microscopic examination of blood, culture Culture Observations: NO GROWTH AT 36-48 HOURS. FINAL TO FOLLOW. Normal [facility] Comment on above: Performed By: #### T NGUYỄN KOROMA, LIPID #### [facility] [address] [place] [address] Dr. Isiah Donohue [facility] SARS-CoV-2 (COVID-19) RNA EDWIN+probe Ql (Unsp spec) Not detected Normal NOT DETECTED [facility] Comment on above: Result Comment: THIS TEST IS NOT APPROVED BY THE FDA. IT HAS BEEN AUTHORIZED FOR USE UNDER AN EMERGENCY USE AUTHORIZATION. Performed By: #### T NGUYỄN KOROMA, LIPID #### [facility] [address] [place] [address] Dr. Isiah Donohue ER URINE PROFILEon 3 Bilirubin Ql (U) Negative Normal NEGATIVE [facility] Comment on above: Performed By: #### T GA CMP, LIPID #### [facility] [address] [address] [address] Isiah Donohue Clarity (U) CLEAR Normal CLEAR [facility] Comment on above: Performed By: #### T SH, CMP, LIPID #### [facility] [address] [address] [address] Isiah Donohue Color (U) YELLOW Normal YELLOW [facility] Comment on above: Performed By: #### T SH, CMP, LIPID #### [facility] [address] [address] [address] Isiah Donohue ERUAHJeremy A micrscopic examination will be performed if indicated. Normal [facility] Comment on above: Performed By: #### T SH, CMP, LIPID #### [facility] [address] [place] [address] Dr. Isiah Donohue Glucose Ql (U) Negative Normal NEGATIVE [facility] Comment on above: Performed By: #### T SH, CMP, LIPID #### [facility] [address] [place] [address] Dr. Isiah Donohue Hemoglobin Ql (U) MODERATE Abnormal NEGATIVE [facility] Comment on above: Performed By: #### T SH, CMP, LIPID #### [facility] [address] [place] [address] Dr. Isiah Donohue Ketones Ql (U) Negative Normal NEGATIVE [facility] Comment on above: Performed By: #### T SH, CMP, LIPID #### [facility] [address] [place] [address] Dr. Isiah Donohue LEUKOCYTES Negative Normal NEGATIVE [facility] Comment on above: Performed By: #### T SH, CMP, LIPID #### [facility] [address] [place] [address] Dr. Isiah Donohue Nitrite Ql (U) Negative Normal NEGATIVE [facility] Comment on above: Performed By: #### T SH, CMP, LIPID #### [facility] [address] [place] [address] Dr. Isiah Donohue pH (U) 6.0 [pH] Normal 5-9 [facility] Comment on above: Performed By: #### T SH, CMP, LIPID #### [facility] [address] [place] [address] Dr. Isiah Donohue Protein (U) [Mass/Vol] 100 mg/dL Abnormal NEGATIVE/ TRACE [facility] Comment on above: Performed By: #### T SH, CMP, LIPID #### [facility] [address] [address] [address] Isiah Donohue SPEC GRAVITY 1.015 Normal 1.005-<=1.025 The [facility] Comment on above: Performed By: #### T SH, CMP, LIPID #### [facility] [address] [place] [address] Dr. Isiah Donohue UR MICRO IND INDICATED Normal [facility] Comment on above: Performed By: #### T SH, CMP, LIPID #### [facility] [address] [place] [address] Dr. Isiah Donohue Urobilinogen Qn (U) 1.0 {Danny'U}/dL Normal 0.2 - 1. [address] [facility] Comment on above: Performed By: #### T SH, CMP, LIPID #### [facility] [address] [place] [address] Dr. Isiah Donohue LACTATE/LACTIC ACIDon 2022 Lactate [Moles/Vol] 0.9 mmol/L Normal 0.4-2.0 [facility] Comment on above: Performed By: #### T SH, CMP, LIPID #### [facility] [address] [place] [address] Dr. Isiah Donohue LIPASEon 09-24-2022 Lipase [Catalytic activity/Vol] 43.0 U/L Critically low 73.0-393.[address] [facility] Comment on above: Performed By: #### C MP, BNP, LIPA, HSTROPN #### [facility] [address] [place] [address] Dr. Isiah Donohue PH VENOUS BLOODon 09-24-2022 PCO2 VENOUS 38.5 mmHg Critically low 40.0-52.0 [facility] Comment on above: Performed By: #### T SH, CMP, LIPID #### [facility] [address] [place] [address] Dr. Isiah Donohue pH VENOUS 7.443 Critically high 7.330-7.430 [facility] Comment on above: Performed By: #### T SH, CMP, LIPID #### [facility] [address] [place] [address] Dr. Isiah Donohue PROF 14(COMP METB)on 023 Albumin [Mass/Vol] 2.7 g/dL Critically low 3.4-5.0 [facility] Comment on above: Performed By: #### C MP, BNP, LIPA, HSTROPN #### [facility] [address] [place] [address] Dr. Isiah Donohue Albumin/Globulin [Mass ratio] 0.6 {ratio} Normal [facility] Comment on above: Performed By: #### C MP, BNP, LIPA, HSTROPN #### [facility] [address] [place] [address] Dr. Isiah Donohue ALP [Catalytic activity/Vol] 114 U/L Normal 46-[address] [facility] Comment on above: Performed By: #### C MP, BNP, LIPA, HSTROPN #### [facility] [address] [place] [address] Dr. Isiah Donohue ALT [Catalytic activity/Vol] 45 U/L Normal 16-[address] [facility] Comment on above: Performed By: #### C MP, BNP, LIPA, HSTROPN #### [facility] [address] [place] [address] Dr. Isiah Donohue Anion gap [Moles/Vol] 9.9 mmol/L Normal [facility] Comment on above: Performed By: #### C MP, BNP, LIPA, HSTROPN #### [facility] [address] [place] [address] Dr. Isiah Donohue AST [Catalytic activity/Vol] 57 U/L Critically high 15-[address] [facility] Comment on above: Performed By: #### C MP, BNP, LIPA, HSTROPN #### [facility] [address] [place] [address] Dr. Isiah Donohue Bilirubin [Mass/Vol] 0.3 mg/dL Normal 0.2-1.[address] [facility] Comment on above: Performed By: #### C MP, BNP, LIPA, HSTROPN #### [facility] [address] [address] [address] Isiah Donohue Calcium [Mass/Vol] 8.6 mg/dL Normal 8.5-10.1 [facility] Comment on above: Performed By: #### C MP, BNP, LIPA, HSTROPN #### [facility] [address] [address] [address] Isiah Donohue Chloride [Moles/Vol] 101 mmol/L Normal 98-[address] [facility] Comment on above: Performed By: #### C MP, BNP, LIPA, HSTROPN #### [facility] [address] [place] [address] Dr. Isiah Donohue CO2 [Moles/Vol] 25.7 mmol/L Normal 21.0-32.0 [facility] Comment on above: Performed By: #### C MP, BNP, LIPA, HSTROPN #### [facility] [address] [address] [address] Isiah Donohue Creatinine [Mass/Vol] 1.09 mg/dL Normal 0.70-1.[address] [facility] Comment on above: Performed By: #### C MP, BNP, LIPA, HSTROPN #### [facility] [address] [address] [address] Isiah oDnohue EGFR-AF SOMALI >60 Normal >=60 [facility] Comment on above: Performed By: #### C MP, BNP, LIPA, HSTROPN #### [facility] [address] [address] [address] Isiah Donohue EGFR-NON AF SOMALI >60 Normal >=[address] [facility] Comment on above: Performed By: #### C MP, BNP, LIPA, HSTROPN #### [facility] [address] [address] [address] Isiah Donohue Globulin (S) [Mass/Vol] 4.2 g/dL Normal [facility] Comment on above: Performed By: #### C MP, BNP, LIPA, HSTROPN #### [facility] [address] [place] [address] Dr. Isiah Donohue Glucose [Mass/Vol] 117 mg/dL Critically high 74-106 [facility] Comment on above: Performed By: #### C MP, BNP, LIPA, HSTROPN #### [facility] [address] [address] [address] Isiah Donohue Potassium [Moles/Vol] 3.6 mmol/L Normal 3.5-5.[address] [facility] Comment on above: Performed By: #### C MP, BNP, LIPA, HSTROPN #### [facility] [address] [place] [address] Dr. Isiah Donohue Protein [Mass/Vol] 6.9 g/dL Normal 6.4-8.2 [facility] Comment on above: Performed By: #### C MP, BNP, LIPA, HSTROPN #### [facility] [address] [address] [address] Isiah Donohue Sodium [Moles/Vol] 133 mmol/L Critically low 136-145 [facility] Comment on above: Performed By: #### C MP, BNP, LIPA, HSTROPN #### [facility] [address] [place] [address] Dr. Isiah Donohue Urea nitrogen [Mass/Vol] 13.0 mg/dL Normal 7.0-18.[address] [facility] Comment on above: Performed By: #### C MP, BNP, LIPA, HSTROPN #### [facility] [address] [place] [address] Dr. Isiah Donohue Urea nitrogen/Creatinine [Mass ratio] 11.9 mg/mg Normal [facility] Comment on above: Performed By: #### C MP, BNP, LIPA, HSTROPN #### [facility] [address] [place] [address] Dr. Isiah Donohue PROTIMEon 09-24-2022 INR Coag (PPP) [Relative time] 1.05 {INR} Normal [facility] Comment on above: Performed By: #### P T #### [facility] [address] [place] [address] Dr. Isiah Donohue INR GUIDELINES SEE BELOW Normal [facility] Comment on above: Result Comment: TAI RED INR: 2.0 - 3.0 CONDITIONS NOT LISTED BELOW 2.5 - 3.5 FOR PROSTHETIC HEART VALVE REPLACEMENT 2.5 - 3.5 RECURRENT THROMBOSIS Performed By: #### P T #### [facility] [address] [place] [address] Dr. Isiah Donohue PT Coag (PPP) [Time] 11.1 s Normal 9.0-11.[address] [facility] Comment on above: Performed By: #### P T #### [facility] [address] [place] [address] Dr. Isiah Donohue SYMPTOMATIC COVID-19 ANTIGEN on 09-24-2022 EUA Statement SEE BELOW Normal [facility] Comment on above: Result Comment: This test [...] sooner. Performed By: #### C VDAGS #### [facility] [address] [place] [address] Dr. Isiah Donohue SARS-CoV-2 (COVID-19) RNA EDWIN+probe Ql (Unsp spec) Negative Normal NEGATIVE [facility] Comment on above: Performed By: #### C VDAGS #### [facility] [address] [place] [address] Dr. Isiah Donohue TROPONIN, HIGH SENSITIVITYon 09-24-2022 HSTROP 6.9 pg/mL Normal 4.0-76.1 [facility] Comment on above: Result Comment: CUT- OFF POINTS HAVE BEEN ESTABLISHED BASED ON THE FOURTH UNIVERSAL DEFINITIONS OF MYOCARDIAL INFARCTION. THE UPPER REFERENCE LIMIT (URL) OF TROPONIN, DEFINED THE 99TH PERCENTILE OF cTnI DISTRIBUTION IN A REFERENCE POPULATION, HAS BEEN CONFIRMED THE DECISION THRESHOLD FOR MA DIAGNOSIS. Performed By: #### C MP, BNP, LIPA, HSTROPN #### [facility] [address] [place] [address] Dr. Isiah Donohue URINE MICROSCOPIC ONLYon BACTERIA TRACE Abnormal NONE SEEN The [facility] Comment on above: Performed By: #### T SH, CMP, LIPID #### [facility] [address] [place] [address] Dr. Isiah Donohue Bacteria identified Cx Nom (U) NOT INDICATED Normal [facility] Comment on above: Performed By: #### T SH, CMP, LIPID #### [facility] [address] [place] [address] Dr. Isiah Donohue CAST SEEN Abnormal NONE SEEN [facility] Comment on above: Performed By: #### T SH, CMP, LIPID #### [facility] [address] [place] [address] Dr. Isiah Donohue Crystals LM Nom (Urine sed) NONE SEEN Normal NONE SEEN [facility] Comment on above: Performed By: #### T SH, CMP, LIPID #### [facility] [address] [place] [address] Dr. Isiah Donohue Epithelial cells LM Ql (Urine sed) FEW Abnormal NONE SEEN /RARE [facility] Comment on above: Performed By: #### T SH, CMP, LIPID #### [facility] [address] [place] [address] Dr. Isiah Donohue HYALINE CAST RARE Normal [facility] Comment on above: Performed By: #### T SH, CMP, LIPID #### [facility] [address] [place] [address] Dr. Isiah Donohue MUCOUS NONE SEEN Normal NONE SEEN [facility] Comment on above: Performed By: #### T SH, CMP, LIPID #### [facility] [address] [place], [place] [address] Dr. Isiah Donohue RBC 5-10 Abnormal 0-[address] [facility] Comment on above: Performed By: #### T SH, CMP, LIPID #### [facility] [address] [place], [place] [address] Dr. Isiah Donohue WBC 0-2 Abnormal NONE SEEN The [facility] Comment on above: Performed By: #### T SH, CMP, LIPID #### [facility] [address] [place], [place] [address] Dr. Isiah Donohue ED Clinical Summaryon 2022 ED Clinical Summary [facility] [address] [place] [address] Clinical Summary PERSON INFORMATION Name: JOHANN WONG Age: 62 Years Sex: MALE : 1960 MRN: Acct#: Visit Reason: UC - Cough; FEVER, COUGH Arrival: 09/23/2022 14:09:49 Discharge: 09/23/2022 15:10:00 LOS: 000 01:01 Check In: 09/23/2022 14:09:49 Checkout: 09/23/2022 15:10:00 Address: [address] [place] [address] PCP: LINA FARRIS PROVIDER INFORMATION Provider Role Assigned Unassigned Elisa Castro RN NEW GRAD Nurse 09/23/2022 14:12:12 CHYNA QUIROGA ED PA [...] or high potato voice appreciated NECK: -Supple (jlhp-mo-abxmw): non-tender. CARD: -Rate and rhythm: Regular -Edema: [...] and Plan Assessment and Plan: Diagnosis: Fever (TQI64-FM R50.9), Right lower lobe pneumonia (MUR68-QO J18.9), Elevated blood pressure reading (BUR63-VM R03.0), Cough (IDE87-KV R05.9). Orders Orders Radiology: XR Chest 2 [...] of rest and fluids along with Mucinex subq-fov-abydtwb. I recommended a strep swab along with chest x-ray patient was in agreement. Strep swab is negative, chest x-ray right lower lobe pneumonia as interpreted by radiologist. I explained to the patient that I (more content not included)... Normal [facility] ED Note - Physicianon 2022 ED [...] or high potato voice appreciated NECK: -Supple (xiyx-jg-ixnhs): non-tender. CARD: -Rate and rhythm: Regular -Edema: [...] and Plan Assessment and Plan: Diagnosis: Fever (GHM68-KA R50.9), Right lower lobe pneumonia (GRS74-QX J18.9), Elevated blood pressure reading (RQQ87-BH R03.0), Cough (PTQ63-MX R05.9). Orders Orders Radiology: XR Chest 2 [...] of rest and fluids along with Mucinex oqcm-czx-pkpibrt. I recommended a strep swab along with [...] this, patient (more content not included)... Normal [facility] ED Patient Summaryon 023 ED Patient Summary [facility] ? Urgent Care [address] [place] [address] PATIENT DISCHARGE INSTRUCTIONS Patient Information Name: JOHANN WONG Age: 62 Years Date of : 1960 Reason For Visit: UC - Cough; FEVER, COUGH Arrival Time: 09/23/2022 14:09:49 Primary Care Physician: LINA FARRIS Attending Physician: CHYNA QUIROGA Comment: Patient Education With: Address: When: LINA FARRIS [address] [place], [place] [id number] Business (1) Within 1 to 2 days [...] care p (more content not included)... Normal [facility] Strep Aon 09-23-2022 Strep procedure control Pass Normal [facility] Comment on above: Performed By: #### [id number] ####[facility] (DEFAULT)[address] [place] [address] Streptococcus A Negative Normal Negative [facility] Comment on above: Performed By: #### [id number] ####[facility] (DEFAULT)[address] [place] [id number] [facility] [place] 023 Urgent Care Record [facility] ? Urgent Care [address] [place] [address] PATIENT DISCHARGE INSTRUCTIONS Patient Information Name: JOHANN WONG Age: 62 Years Date of : 1960 Reason For Visit: UC - Cough; FEVER, COUGH Arrival Time: 09/23/2022 14:09:49 Primary Care Physician: LINA FARRIS Attending Physician: CHYNA QUIROGA Comment: Visit Diagnosis: Diagnoses This Visit Cough (R05.9) Elevated blood pressure reading (R03.0) Fever (R50.9) Right lower lobe pneumonia (J18.9) UC - Cough ([id number]) If you received any narcotics, sedation, or [...] When: LINA FARRIS [address] [place] [id number] Business (1) Within 1 to 2 days [...] and treatment you received today in the [facility] were for an urgent problem and are not intended as complete care. It is important for you to follow up with a doctor, nurse practitioner, or physician?s assistant professor of sociology for ongoing care. If your symptoms become [...] so we can reach you if necessary. [facility]gent [facility] has provided you with a complete list of medications post discharge. Please inform your chemistry tutor/provider of your visit and for further instruction on these medications. Any specific questions regarding your chronic medications and dosages should be discussed with your primary care physician(s) and/or pharmacist. New Medications [facility]/pharmacy #[id number], [address], [place] [phone], [phone] cefpodoxime (cefpodoxime 200 mg oral tablet) 1 [...] and other (more content not included)... Normal [facility] XR Chest 2 Viewson 3 XR [...] 09/23/22 2:59 pm Technologist: Enoc VILLEGAS Normal [facility] FREE T4on 08-06-2022 Free T4 [Mass/Vol] 0.95 ng/dL Normal 0.76-1.46 [facility] Comment on above: Performed By: #### T GA, CMP, LIPID #### [facility] [address] [address] [address] Isiah Donohue TSH W/ REFLEX TO FT4on 08-06 TSH 4.498 uIU/mL Critically high 0.358-3.740 [facility] Comment on above: Performed By: #### T GA, CMP, LIPID #### [facility] [address] [address] [address] Isiah Donohue PSA, FREE AND TOTAL RATIOon 06-10-2022 % Free PSA 14.8 % Normal [facility] Comment on above: Result Comment: [...] men. Performed By: #### P SAFREE #### [facility] [address] [address] [address] Isiah Donohue Prostate specific Ag [Mass/Vol] 2.9 ng/mL Normal 0.0-4.[address] [facility] Comment on above: Result Comment: Robert norman ECLIA methodology. . According to the [employer], Serum PSA should decrease and [...] disease. Performed By: #### P SAFREE #### [facility] [address] [place], [place] [address] Dr. Isiah Donohue PSA, Free 0.43 ng/mL Normal N/A [facility] Comment on above: Result Comment: Robert norman ECLIA methodology. Performed By: #### P SAFREE #### [facility] [address] [place], [place] [address] Dr. Isiah Donohue [facility] echo transthoracicon [facility] echo transthoracic [facility] [place] [address] Echocardiogram Signed Patient: Johann Wong MR#: [id number] 60 : 1960 Acct:[id number] Age/Sex: 61 / M ADM Date: 05/31/22 Loc: Room: Type: [facility] Attending Dr: Lina Farris DO Ordering Provider: Lina Farris DO Date of Service: 05/31/22/ [facility] echo transthoracic: Murmur. Copies to: Carlita Mendez MD, [facility] Lina Farris DO Weight: 240 lb Performed By: Bonnie Wallace [facility] BSA: 2.2 m2 BP: 158/90 mmHg HR: [...] 75.7 cm/sec LV V1 VTI: 21.0 cm Transcribed By: SCV Performed At: 05/31/22 1542 Signed By: Carlita Mendez MD, [facility] 06/01/22 0733 [facility] CBC AUTO DIFFon 05-28-2022 BASO # 0.0 103/ul Normal 0.0-0.[address] [facility] Comment on above: Performed By: #### T NGUYỄN KOROMA LIPID #### [facility] [address] [address] [address] Isiah Donohue Basophils/100 WBC (Bld) 0.8 % Normal 0.2-2.[address] [facility] Comment on above: Performed By: #### T NGUYỄN KOROMA, LIPID #### [facility] [address] [place] [address] Dr. Isiah Donohue EO # 0.1 103/ul Normal 0.0-0.[address] [facility] Comment on above: Performed By: #### T SH, CMP, LIPID #### [facility] [address] [place] [address] Dr. Isiah Donohue Eosinophils/100 WBC (Bld) 2.7 % Normal 0.9-7.[address] [facility] Comment on above: Performed By: #### T SH, CMP, LIPID #### [facility] [address] [place] [address] Dr. Isiah Donohue Erythrocyte distribution width (RBC) [Ratio] 13.0 % Normal 11.0-15.[address] [facility] Comment on above: Performed By: #### T SH, CMP, LIPID #### [facility] [address] [place] [address] Dr. Isiah Donohue Hematocrit (Bld) [Volume fraction] 48.8 % Normal 42.0-54.[address] [facility] Comment on above: Performed By: #### T SH, CMP, LIPID #### [facility] [address] [place] [address] Dr. Isiah Donohue Hemoglobin (Bld) [Mass/Vol] 14.6 g/dL Normal 14.0-18.[address] [facility] Comment on above: Performed By: #### T SH, CMP, LIPID #### [facility] [address] [place] [address] Dr. Isiah Donohue IG # 0.01 10e3/ul Normal 0.00-0.[address] [facility] Comment on above: Performed By: #### T SH, CMP, LIPID #### [facility] [address] [place] [address] Dr. Isiah Donohue IG % 0.2 % Normal 0.0-0.[address] [facility] Comment on above: Performed By: #### T SH, CMP, LIPID #### [facility] [address] [place] [address] Dr. Isiah Donohue LYMPH # 1.5 103/ul Normal 1.2-3.[address] [facility] Comment on above: Performed By: #### T SH, CMP, LIPID #### [facility] [address] [place] [address] Dr. Isiah Donohue Lymphocytes/100 WBC (Bld) 30.0 % Normal 20.5-60.[address] [facility] Comment on above: Performed By: #### T SH, CMP, LIPID #### [facility] [address] [place] [address] Dr. Isiah Donohue MANUAL DIFF REQ NO Normal [facility] Comment on above: Performed By: #### T SH, CMP, LIPID #### [facility] [address] [place] [address] Dr. Isiah Donohue MCH (RBC) [Entitic mass] 28.9 pg Normal 25.9-34.[address] [facility] Comment on above: Performed By: #### T SH, CMP, LIPID #### [facility] [address] [place] [address] Dr. Isiah Donohue MCHC (RBC) [Mass/Vol] 29.9 g/dL Normal 29.9-35.2 [facility] Comment on above: Performed By: #### T SH, CMP, LIPID #### [facility] [address] [place] [address] Dr. Isiah Donohue MCV (RBC) [Entitic vol] 96.6 fL Critically high 80.0-94.0 [facility] Comment on above: Performed By: #### T SH, CMP, LIPID #### [facility] [address] [place] [address] Dr. Isiah Donohue MONO # 0.6 103/ul Normal 0.3-0.8 [facility] Comment on above: Performed By: #### T SH, CMP, LIPID #### [facility] [address] [place] [address] Dr. Isiah Donohue Monocytes/100 WBC (Bld) 11.2 % Normal 1.7-12.0 [facility] Comment on above: Performed By: #### T SH, CMP, LIPID #### [facility] [address] [address] [address] Isiah Donohue NEUT # 2.7 103/ul Normal 1.4-6.[address] [facility] Comment on above: Performed By: #### T SH, CMP, LIPID #### [facility] [address] [place] [address] Dr. Isiah Donohue Neutrophils/100 WBC (Bld) 55.1 % Normal 43.0-75.[address] [facility] Comment on above: Performed By: #### T SH, CMP, LIPID #### [facility] [address] [place] [address] Dr. Isiah Donohue Platelet mean volume (Bld) [Entitic vol] 10.7 fL Normal 9.5-13.[address] [facility] Comment on above: Performed By: #### T SH, CMP, LIPID #### [facility] [address] [place] [address] Dr. Isiah Donohue PLT 204 103/ul Normal 150-[address] [facility] Comment on above: Performed By: #### T SH, CMP, LIPID #### [facility] [address] [place] [address] Dr. Isiah Donohue RBC 5.05 106/ul Normal 4.70-6.[address] [facility] Comment on above: Performed By: #### T SH, CMP, LIPID #### [facility] [address] [place] [address] Dr. Isiah Donohue WBC 4.9 103/ul Normal 4.0-11.[address] [facility] Comment on above: Performed By: #### T SH, CMP, LIPID #### [facility] [address] [place] [address] Dr. Isiah Donohue FREE T4on 05-28-2022 Free T4 [Mass/Vol] 0.94 ng/dL Normal 0.76-1.46 [facility] Comment on above: Performed By: #### T SH, CMP, LIPID #### [facility] [address] [place] [address] Dr. Isiah Donohue LIPID PROFILEon 05-28-2022 CHOL-HDL RATIO NORM SEE BELOW Normal [facility] Comment on above: Result Comment: 3.3 - 4.4 LOW RISK 4.4 - 7.1 AVERAGE RISK 7.1 - 11.0 MODERATE RISK >11.0 HIGH RISK Performed By: #### T SH, CMP, LIPID #### [facility] [address] [address] [address] Isiah Donohue Cholesterol [Mass/Vol] 200 mg/dL Normal <=[address] [facility] Comment on above: Performed By: #### T SH, CMP, LIPID #### [facility] [address] [address] [address] Isiah Donohue Cholesterol in HDL [Mass/Vol] 48 mg/dL Normal 40-[address] [facility] Comment on above: Performed By: #### T GA CMP, LIPID #### [facility] [address] [address] [address] Isiah Donohue Cholesterol in LDL [Mass/Vol] 138.4 mg/dL Normal [facility] Comment on above: Performed By: #### T GA CMP, LIPID #### [facility] [address] [address] [address] Isiah Donohue Cholesterol.total/Cho lesterol in HDL [Mass ratio] 4.2 {ratio} Normal [facility] Comment on above: Performed By: #### T GA CMP, LIPID #### [facility] [address] [address] [address] Isiah Donohue HDL NORMAL > or = 60 mg/dl - LOW CARDIOVASCULAR RISK <40 mg/dl - HIGH CARDIOVASCULAR RISK Normal [facility] Comment on above: Performed By: #### T GA, CMP, LIPID #### [facility] [address] [address] [address] Isiah Donohue LDL CALC NORMAL SEE BELOW Normal [facility] Comment on above: Result Comment: <100 mg/dl OPTIMAL 100 - 129 mg/dl NEAR OR ABOVE OPTIMAL 130 - 159 mg/dl BORDERLINE HIGH 160 - 189 mg/dl HIGH >190 mg/dl VERY HIGH Performed By: #### T SH, CMP, LIPID #### [facility] [address] [address] [address] Isiah Donohue Triglyceride [Mass/Vol] 68 mg/dL Normal <=[address] [facility] Comment on above: Performed By: #### T SH, CMP, LIPID #### [facility] [address] [place] [address] Dr. Isiah Donohue VLDL CALC 13.6 mg/dL Normal [facility] Comment on above: Performed By: #### T SH, CMP, LIPID #### [facility] [address] [place] [address] Dr. Isiah Donohue PROF 14(COMP METB)on 023 Albumin [Mass/Vol] 3.3 g/dL Critically low 3.4-5.0 [facility] Comment on above: Performed By: #### T SH, CMP, LIPID #### [facility] [address] [place] [address] Dr. Isiah Donohue Albumin/Globulin [Mass ratio] 0.9 {ratio} Normal [facility] Comment on above: Performed By: #### T SH, CMP, LIPID #### [facility] [address] [place] [address] Dr. Isiah Donohue ALP [Catalytic activity/Vol] 99 U/L Normal 46-[address] [facility] Comment on above: Performed By: #### T SH, CMP, LIPID #### [facility] [address] [place] [address] Dr. Isiah Donohue ALT [Catalytic activity/Vol] 22 U/L Normal 16-[address] [facility] Comment on above: Performed By: #### T SH, CMP, LIPID #### [facility] [address] [place] [address] Dr. Isiah Donohue Anion gap [Moles/Vol] 11.4 mmol/L Normal [facility] Comment on above: Performed By: #### T SH, CMP, LIPID #### [facility] [address] [place] [address] Dr. Isiah Donohue AST [Catalytic activity/Vol] 16 U/L Normal 15-[address] [facility] Comment on above: Performed By: #### T SH, CMP, LIPID #### [facility] [address] [place] [address] Dr. Isiah Donohue Bilirubin [Mass/Vol] 0.4 mg/dL Normal 0.2-1.[address] [facility] Comment on above: Performed By: #### T SH, CMP, LIPID #### [facility] [address] [place] [address] Dr. Isiah Donohue Calcium [Mass/Vol] 8.7 mg/dL Normal 8.5-10.1 [facility] Comment on above: Performed By: #### T SH, CMP, LIPID #### [facility] [address] [place] [address] Dr. Isiah Donohue Chloride [Moles/Vol] 104 mmol/L Normal 98-[address] [facility] Comment on above: Performed By: #### T SH, CMP, LIPID #### [facility] [address] [place] [address] Dr. Isiah Donohue CO2 [Moles/Vol] 29.6 mmol/L Normal 21.0-32.0 [facility] Comment on above: Performed By: #### T SH, CMP, LIPID #### [facility] [address] [place] [address] Dr. Isiah Donohue Creatinine [Mass/Vol] 1.07 mg/dL Normal 0.70-1.[address] [facility] Comment on above: Performed By: #### T GA CMP, LIPID #### [facility] [address] [place] [address] Dr. Isiah Donohue EGFR-AF SOMALI >60 Normal >=60 [facility] Comment on above: Performed By: #### T SH, CMP, LIPID #### [facility] [address] [place] [address] Dr. Isiah Donohue EGFR-NON AF SOMALI >60 Normal >=[address] [facility] Comment on above: Performed By: #### T SH, CMP, LIPID #### [facility] [address] [place] [address] Dr. Isiah Donohue Globulin (S) [Mass/Vol] 3.5 g/dL Normal [facility] Comment on above: Performed By: #### T SH, CMP, LIPID #### [facility] [address] [place], [place] [id number] Dr. Isiah Donohue Glucose [Mass/Vol] 101 mg/dL Normal 74-106 [facility] Comment on above: Performed By: #### T GA CMP, LIPID #### [facility] [address] [place] [address] Dr. Isiah Donohue Potassium [Moles/Vol] 4.0 mmol/L Normal 3.5-5.[address] [facility] Comment on above: Performed By: #### T GA, CMP, LIPID #### [facility] [address] [place] [address] Dr. Isiah Donohue Protein [Mass/Vol] 6.8 g/dL Normal 6.4-8.2 [facility] Comment on above: Performed By: #### T GA CMP, LIPID #### [facility] [address] [place] [address] Dr. Isiah Donohue Sodium [Moles/Vol] 141 mmol/L Normal 136-145 [facility] Comment on above: Performed By: #### T GA CMP, LIPID #### [facility] [address] [place] [address] Dr. Isiah Donohue Urea nitrogen [Mass/Vol] 18.0 mg/dL Normal 7.0-18.[address] [facility] Comment on above: Performed By: #### T GA CMP, LIPID #### [facility] [address] [place] [address] Dr. Isiah Donohue Urea nitrogen/Creatinine [Mass ratio] 16.8 mg/mg Normal [facility] Comment on above: Performed By: #### T GA, CMP, LIPID #### [facility] [address] [place] [address] Dr. Isiah Donohue TSHon 05-28-2022 TSH 7.161 uIU/mL Critically high 0.358-3.740 [facility] Comment on above: Performed By: #### T GA, CMP, LIPID #### [facility] [address] [place] [address] Dr. Isiah Donohue Vital Signs Date Time Vital Sign Value Performing Clinician Faci lity 06-28-2022 13:24-0500 Blood Pressure Location Nigel ANDRE [facility] 06-28-2022 13:24-0500 Diastolic blood pressure 78 mm[Hg] Nigel ANDRE [facility] 06-28-2022 13:24-0500 Heart rate 70 /min Nigel ANDRE [facility] 06-28-2022 13:24-0500 Respiratory rate 16 /min Nigel ANDRE [facility] 06-28-2022 13:24-0500 Systolic blood pressure 132 mm[Hg] Nigel ANDRE [facility] Encounters Encounter Date Encounter Type Care Provider Facility Start: 07-01-2023 End: 07-01-2023 ambulatory Nigel ANDRE Facility:[facility] Start: 07-01-2023 End: 07-01-2023 Patient encounter procedure Nigel ANDRE [facility] Start: 05-06-2023 End: 05-06-2023 ambulatory ELISA PERES Not Available Start: 12-09-2022 End: 12-09-2022 ambulatory Chavez Cao Facility:[facility] Start: 09-24-2022 End: 09-24-[address] CHRIST Carson Facility:[facility] Start: 09-23-2022 End: 09-23-2022 ambulatory LINA FARRIS Facility:[facility] Start: 08-06-2022 End: 08-07-2022 ambulatory LINA FARRIS Facility: Start: 06-28-2022 End: 06-28-2022 Patient encounter procedure Nigel ANDRE [facility] Start: 06-09-2022 End: 06-10-[address] NIGEL ANDRE . Facility:[facility] Start: 06-03-2022 Encounter for genera l adult medical examination without abnormal findings LINA FARRIS [facility] Start: 06-02-2022 ambulatory Facility:[facility] Start: 05-31-2022 End: 05-31-2022 ambulatory Lina Farris Facility:[facility] Start: 05-31-2022 End: 05-31-2022 Patient encounter procedure DO Lina Farris Work Phone: [facility] Work Phone: Start: 05-31-2022 End: 05-31-2022 ambulatory DO Lina Farris Work Phone: [facility] Work Phone: Start: 05-28-2022 End: 05-29-2022 ambulatory LINA FARRIS Facility: Start: 05-28-2022 End: 05-29-2022 Encounter for general adult medical examination without abnormal findings LINA FARRIS Facility: Procedures Date Procedure Procedure Detail Performing Clinician Start: 05-28-2022 PSA screening LINA ABREU Comment on above: Performed By: #### P SAD #### [facility] [address] [place] [address] Dr. Isiah ANDRE Knee region structur e (body structure) Nigel ANDRE Immunizations Immunization Date Immunization Notes Care Provider Fa cility 03-17-2021 SARS-CoV-2 (COVID-19 ) mRNA BNT-162b2 vax Nigel ANDRE [facility] 08-19-2020 SARS-CoV-2 (COVID-19 ) mRNA BNT-162b2 vax Nigel ANDRE [facility] 07-28-2020 SARS-CoV-2 (COVID-19 ) mRNA BNT-162b2 vax Nigel ANDRE [facility] Payers Date Payer Category Payer Self-pay 1960 Unknown [id number] [id number] 1960 Unknown [id number] 2.16.84 [id number] 1960 Unknown [id number] 2.16.84 [id number] 1960 Unknown [id number] 2.16.84 [id number] 1961 Unknown [id number] 2.16.84 [id number] 1960 Unknown [id number] 2.16.8 [id number] 1961 Unknown [id number] 2.16.8 [id number] 1961 Unknown [id number] [id number] 1960 Unknown [id number] 2.16.8 [id number] 1959 Unknown [id number] Unknown [id number] 2.16.8 [id number] Social History Date Type Detail Facility [facility] Work Phone: Start: 1960 Sex Assigned At Male [facility] Start: 06-28-2022 Tobacco smoking status Never s moked tobacco (finding) [facility] Tobacco smoking status Never [facility] Sex Assigned At Male [facility] Functional Status Date Assessment Result Facility 06-28-2022 Functional Status N/A [facility] [place] Clinical Note 12-09-2022 Note Date & [...] Follow these instructions at home: ? 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 ? Avoid contact with people who have [...] is easier to cough up. ? Take twnt-lhi-aqujnfm and prescription medicines only as told by your doctor. ? Contact a doctor if your symptoms do not improve after 2 weeks of treatment. This information is not intended to replace advice given to you by your health care provider. Make sure you discuss any questions you have with your health care provider. Document Revised: 09/02/2021 Document Reviewed: 09/02/2021 [employer] Patient Education ? 2022 [employer]. [facility] Clinical Note 09-23-2022 Note Date & [...] skin, beans, e (more content not included)... [facility] Discharge instructions 06-28-2022 Note Date & Type [...] one of these risk factors: ?Being of -[place] descent. ?Having a family history of prostate [...] you: Are older than age 55. Are -[place]. Have a father, brother, or uncle who [...] 02/10/2018 Document Revised: 04/14/2018 Document Reviewed: 02/10/2018 [employer] Patient Education 2020 [employer]. Follow Up Care 06/01/2022 14:17:15 With:THAI REAGAN, Nigel Melgoza, URL Address: [facility] [address], [place] [address]- When: Unknown [facility] Evaluation + Plan note Note Date & Type Note Facility Evaluation + Plan note Future Appointments Appointment Date:07/01/2023 08:30:00 AM Scheduled Provider:Nigel ANDRE MD Location:[facility] Appointment Type:URO Office Visit Diagnostic Tests PendingPSA Free & Total 06/28/22 [facility] Evaluation note Note Date & Type Note Facility Evaluation note No assessment information availa [facility] Work Phone: Hospital course Narrative Note Date & Type Note Facility Hospital course Narrative No data available for this section [facility] Hospital Discharge instructions Note Date & Type Note Facility Hospital Discharge instructions No data available for this section [facility] Progress note Note Date & Type Note Facility Progress note No data available for this section [facility] Chief Complaint and Reason for Visit [...] section and content) DATE CREATED AUTHOR 06/08/2022 [facility] DATE CREATED AUTHOR AUTHOR'S ORGANIZ ATION 06/19/2022 [facility] DATE CREATED AUTHOR AUTHOR'S ORGANIZ ATION 09/29/2022 [facility] pital DATE CREATED AUTHOR AUTHOR'S ORGANIZ ATION 12/17/2022 [facility] DATE CREATED AUTHOR AUTHOR'S ORGANIZ ATION 05/07/2023 [facility] EPIC DATE CREATED AUTHOR AUTHOR'S ORGANIZ ATION 10/19/2023 [facility] FOR RECORDS PERTAINING TO PATIENTS WHO [...] BE BASED ON THE PRIMARY CLINICAL RECORDS. [email or web address] provides no warranty or guarantee of the accuracy or completeness of information in this document.
[2023-10-28 11:04] LABS: TSH W/ REFLEX FT4 3.033 uIU/mL (0.358-3.740)
== END 2023-10-28 09:51 | disposition home or self-care (01) ==
LOC: LAB 09:50
PROVIDERS: PCP Family Medicine; Visit Provider Family Medicine
DX: E03.9 Hypothyroidism, unspecified (principal); R97.20 Elevated prostate specific antigen [PSA]
CPT/HCPCS: 36415; 84153; 84154; 84443